=== PATIENT | female | born 1970 | race Caucasian/White ===

== ENCOUNTER 2019-02-05 16:02 | Inpatient (IN) | payer BC ==
--- OUTSIDE RECORDS SUMMARY | 2019-02-05 16:07 | XMS REPORT ---
:1970 [facility] Address [address] [place] [address] Dr. Marina [address] [place] [id number] Care Team Providers Name Role Phone Unavailable Unavailable Unavailable Problems This patient has no known problems. Allergies, Adverse Reactions, Alerts This patient has no known allergies or adverse reactions. Medications This patient has no known medications.
[2019-02-05] MEDS ORDERED: ONDANSETRON 4 MG/2 ML VIAL ONE ×3 (16:15→19:07)
[2019-02-05] MEDS ORDERED: HYDROMORPHONE HCL 1 MG/ML INJ ONE (16:15)
[2019-02-05 16:42] LABS: Absolute Lymphocytes (CBC) 1.9 K/uL (0.7-4.9); Absolute Monocytes 0.7 K/uL (0.1-1.3); Absolute Neutrophil 3.3 K/uL (1.8-8.0); Basophils % 0.7 % (0-1.3); Eosinophils % 1.5 % (0-4.4); Hematocrit 36.7 % (36.0-45.0); MPV 8.4 fL (7.6-11.3); Monocytes % 11.7 % (3.3-12.3); RBC Red Blood Cell Count 4.02 M/uL (3.86-4.86)
[2019-02-05] MEDS ORDERED: FENTANYL CITR 100 MCG/2 ML ONE ×2 (16:47→18:57)
[2019-02-05 16:51] LABS: Potassium 3.1 mmol/L (3.5-5.1)
--- NOTE | 2019-02-05 17:14 | RAD REPORT ---
EXAM DESCRIPTION: RAD - Pelvis - 02/05/2019 4:42 pm CLINICAL HISTORY: Trip and fall, pelvic and left hip pain COMPARISON: None. TECHNIQUE: AP imaging of the pelvis was obtained. FINDINGS: No fracture of the bony pelvis seen. Proximal femur and right hip joint show no acute find ings. There is an oblique fracture through the left femoral neck with superior migration of the main body of the femur. Fracture is subcapital along the lateral margin extending medially and inferiorly to the base of the neck. No intertrochanteric involvement seen. IMPRESSION: Left femoral neck fracture as detailed above and on separate left hip report.
--- NOTE | 2019-02-05 17:36 | ER ---
Nurse's Notes [facility] Name: Sara Chen Age: 48 yrs Sex: Female : 1970 Arrival Date: 02/05/2019 Time: 16:06 Bed 6 Private MD: Diagnosis: Left Femoral Neck Fracture Presentation: 02/05 16:08 Presenting complaint: EMS states: pt tripped over a rug and fell landed on LEFT hip, vs tw2 stable. Presenting complaint:. Transition of care: patient was not received from another setting of care. Onset of symptoms was February 05, 2019. Risk Assessment: Do you want to hurt yourself or someone else? Patient reports no desire to harm self or others. Initial Sepsis Screen: Does the patient meet any 2 criteria? No. Patient's initial sepsis screen is negative. Does the patient have a suspected source of infection? No. Patient's initial sepsis screen is negative. Care prior to arrival: IV initiated. 20 GA, in the right antecubital area. 16:08 Method Of Arrival: EMS: [facility] tw2 16:08 Acuity: NEETU 3 tw2 Triage Assessment: 16:09 General: Appears uncomfortable, slender, well groomed, Behavior is calm, cooperative, tw2 appropriate for age. Pain: Complains of pain in LEFT hip. 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 - Social history:: Smoking status: . - Ebola Screening: : Patient denies travel to an Ebola-affected area in the 21 days before illness onset. Screenin:10 Abuse screen: Denies threats or abuse. Nutritional screening: No deficits noted. tw2 Tuberculosis screening: No symptoms or risk factors identified. Fall Risk None identified. Assessment: 16:06 General: Appears uncomfortable, slender, well groomed, Behavior is cooperative, tw2 appropriate for age. Pain: Complains of pain in LEFT hip. Neuro: Level of Consciousness is awake, alert, obeys commands, Oriented to person, place, time, situation. Cardiovascular: Heart tones S1 S2 Patient's skin is warm and dry. Respiratory: Airway is patent Respiratory effort is even, unlabored, Respiratory pattern is regular, symmetrical, Breath sounds are clear bilaterally. GI: No signs and/or symptoms were reported involving the gastrointestinal system. Abdomen is flat, Bowel sounds present X 4 quads. : No signs and/or symptoms were reported regarding the genitourinary system. EENT: No signs and/or symptoms were reported regarding the EENT system. Derm: No signs and/or symptoms reported regarding the dermatologic system. Musculoskeletal: Range of motion: intact in all extremities. 17:00 Reassessment: Patient appears in no apparent distress at this time. Patient and/or tw2 family updated on plan of care and expected duration. Pain level reassessed. Patient is alert, oriented x 3, equal unlabored respirations, skin warm/dry/pink. 18:00 Reassessment: Patient appears in no apparent distress at this time. Patient and/or tw2 family updated on plan of care and expected duration. Pain level reassessed. Patient is alert, oriented x 3, equal unlabored respirations, skin warm/dry/pink. 18:27 Reassessment: Patient appears in no apparent distress at this time. Patient and/or tw2 family updated on plan of care and expected duration. Pain level reassessed. Patient is alert, oriented x 3, equal unlabored respirations, skin warm/dry/pink. Vital Signs: 16:07 BP 117 / 78; Pulse 87; Resp 17; Temp 98.3; Pulse Ox 100% on R/A; Weight 49.9 kg (R); tw2 Height 5 ft. 7 in. (170.18 cm); Pain 10/10; 17:00 BP 105 / 68; Pulse 69; Resp 17; Pulse Ox 100% on R/A; tw2 17:30 BP 118 / 72; Pulse 76; Resp 12; Pulse Ox 99% on R/A; tw2 18:19 BP 115 / 70; Pulse 71; Resp 19; Pulse Ox 100% on R/A; Pain 9/10; tw2 16:07 Body Mass Index 17.23 (49.90 kg, 170.18 cm) tw2 ED Course: 16:06 Patient arrived in ED. tr5 16:06 Placed in gown. Bed in low position. Pulse ox on. NIBP on. tw2 16:07 Marisel Shi, RN is Primary Nurse. tw2 16:09 Triage completed. tw2 16:09 Arm band placed on. tw2 16:14 Eros Severino PA is PHCP. jr8 16:15 Guy Hopkins MD is Attending Physician. jr8 16:24 CBC with Diff Sent. tw2 16:38 X-ray completed. Portable x-ray completed in exam room. Patient tolerated procedure az well. 16:39 XRAY Pelvis In Process Unspecified. EDMS 16:39 XRAY Hip LEFT 2 view In Process Unspecified. EDMS 16:45 Warm blanket given. Pillow given. jp3 16:57 EKG done, by technical information specialist. reviewed by Eros LOVE. sm3 17:35 Jenaro Perez MD is Hospitalizing Provider. jr8 18:27 No provider procedures requiring assistance completed. Maintain EMS IV. Dressing tw2 intact. Good blood return noted. Site clean \T\ dry. Gauge \T\ site: 20 G RIGHT AC. 18:29 Patient admitted, IV remains in place. tw2 Administered Medications: 16:05 Drug: Dilaudid 1 mg Route: IVP; Site: right antecubital; tw2 16:38 Follow up: Response: No adverse reaction; Pain is unchanged, physician notified tw2 16:05 Drug: Zofran 4 mg Route: IVP; Site: right antecubital; tw2 16:38 Follow up: Response: No adverse reaction tw2 16:38 Drug: fentaNYL (PF) 50 mcg Route: IVP; Site: right antecubital; tw2 17:03 Follow up: Response: No adverse reaction; Pain is decreased tw2 17:03 Drug: fentaNYL (PF) 50 mcg Route: IVP; Site: right antecubital; tw2 17:44 Follow up: Response: No adverse reaction; Pain is decreased tw2 17:43 Drug: Dilaudid 0.5 mg Route: IVP; Site: right antecubital; tw2 18:28 Follow up: Response: No adverse reaction; Pain is decreased tw2 18:23 Drug: Dilaudid 0.5 mg Route: IVP; Site: right antecubital; tw2 18:28 Follow up: Response: No adverse reaction; Pain is decreased tw2 Outcome: 17:36 Decision to Hospitalize by Provider. jr8 18:28 Admitted to OR accompanied by nurse, via stretcher, with chart, Report called to tw2 ANNA Padron/OR 18:28 Condition: stable 18:28 Instructed on the need for admit. 18:29 Patient left the ED. tw2 Signatures: Dispatcher [employer] EDMS Eros Severino PA PA jr8 Marisel Shi RN RN tw2 Jenny Coats 3 Ross Lopez 3 Kenzie Barrios Tommie, RN RN tr5 Corrections: (The following items were deleted from the chart) 16:12 16:08 Acuity: NEETU 4 tw2 tw2 18:28 18:19 BP 115 / 70; Pulse 71bpm; Resp 19bpm; Pulse Ox 100% RA; tw2 tw2
--- NOTE | 2019-02-05 17:36 | EDPHYS ---
Physician Documentation [facility] Name: Sara Chen Age: 48 yrs Sex: Female : 1970 Arrival Date: 02/05/2019 Time: 16:06 Bed 6 Private MD: ED Physician Guy Hopkins HPI: 02/05 16:27 This 48 yrs old Female presents to ER via EMS with complaints of fall injury. jr8 16:27 The patient or guardian reports pain. that occurred outdoors, sustained from a fall, jr8 The patient is not able to ambulate. Patient is not able to bear weight. There is no radiation of the patient's discomfort. The complaints affect the left hip. Onset: The symptoms/episode began/occurred acutely, just prior to arrival, today. Modifying factors: The symptoms are alleviated by nothing, the symptoms are aggravated by any movement. Associated signs and symptoms: Loss of consciousness: the patient experienced no loss of consciousness, Pertinent positives: None. Severity of symptoms: At their worst the symptoms were moderate, in the emergency department the symptoms are unchanged. The patient has not experienced similar symptoms in the past. The patient has not recently seen a physician. Stated that she tripped while in parking lot and tried to brace herself but ended up hitting directly onto her left lateral hip and back of head. NO LOC . 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 - Social history:: Smoking status: . - Ebola Screening: : Patient denies travel to an Ebola-affected area in the 21 days before illness onset. ROS: 16:27 Eyes: Negative for injury, pain, redness, and discharge, ENT: Negative for injury, jr8 pain, and discharge, Neck: Negative for injury, pain, and swelling, Cardiovascular: Negative for chest pain, palpitations, and edema, Respiratory: Negative for shortness of breath, cough, wheezing, and pleuritic chest pain, Abdomen/GI: Negative for abdominal pain, nausea, vomiting, diarrhea, and constipation, Back: Negative for injury and pain, Skin: Negative for injury, rash, and discoloration, Neuro: Negative for headache, weakness, numbness, tingling, and seizure. 16:27 MS/extremity: Positive for decreased range of motion, pain, tenderness, of the left hip. Exam: 16:27 Eyes: Pupils equal round and reactive to light, extra-ocular motions intact. Lids and jr8 lashes normal. Conjunctiva and sclera are non-icteric and not injected. Cornea within normal limits. Periorbital areas with no swelling, redness, or edema. ENT: Nares patent. No nasal discharge, no septal abnormalities noted. Tympanic membranes are normal and external auditory canals are clear. Oropharynx with no redness, swelling, or masses, exudates, or evidence of obstruction, uvula midline. Mucous membranes moist. Neck: Trachea midline, no thyromegaly or masses palpated, and no cervical lymphadenopathy. Supple, full range of motion without nuchal rigidity, or vertebral point tenderness. No Meningismus. Cardiovascular: Regular rate and rhythm with a normal S1 and S2. No gallops, murmurs, or rubs. Normal PMI, no JVD. No pulse deficits. Respiratory: Lungs have equal breath sounds bilaterally, clear to auscultation and percussion. No rales, rhonchi or wheezes noted. No increased work of breathing, no retractions or nasal flaring. Abdomen/GI: Soft, non-tender, with normal bowel sounds. No distension or tympany. No guarding or rebound. No evidence of tenderness throughout. Back: No spinal tenderness. No costovertebral tenderness. Full range of motion. Skin: Warm, dry with normal turgor. Normal color with no rashes, no lesions, and no evidence of cellulitis. Neuro: Awake and alert, GCS 15, oriented to person, place, time, and situation. Cranial nerves II-XII grossly intact. Motor strength 5/5 in all extremities. Sensory grossly intact. Cerebellar exam normal. Normal gait. 16:27 Head/face: Noted is hematoma, that is mild, of the left side of the back of head. 16:27 Musculoskeletal/extremity: Extremities: grossly normal except: noted in the left hip: pain, tenderness, over the greater trochanter region of left hip, ROM: limited active range of motion, limited passive range of motion, limited active range of motion due to pain, limited passive range of motion due to pain, Circulation is intact in all extremities. Pulses: noted to be 2+ in the right radial artery, right posterior tibial artery, right dorsalis pedis artery, left radial artery, left posterior tibial artery and left dorsalis pedis artery, Sensation intact. Vital Signs: 16:07 BP 117 / 78; Pulse 87; Resp 17; Temp 98.3; Pulse Ox 100% on R/A; Weight 49.9 kg (R); tw2 Height 5 ft. 7 in. (170.18 cm); Pain 10/10; 17:00 BP 105 / 68; Pulse 69; Resp 17; Pulse Ox 100% on R/A; tw2 17:30 BP 118 / 72; Pulse 76; Resp 12; Pulse Ox 99% on R/A; tw2 18:19 BP 115 / 70; Pulse 71; Resp 19; Pulse Ox 100% on R/A; Pain 9/10; tw2 16:07 Body Mass Index 17.23 (49.90 kg, 170.18 cm) tw2 MDM: 16:15 Patient medically screened. jr8 16:58 Data reviewed: vital signs, nurses notes, lab test result(s), EKG, radiologic studies, jr8 plain films. Data interpreted: Pulse oximetry: on room air is 100 %. Interpretation: normal. Counseling: I had a detailed discussion with the patient and/or guardian regarding: the historical points, exam findings, and any diagnostic results supporting the discharge/admit diagnosis, lab results, radiology results, the need for further work-up and treatment in the hospital, need for surgery. ED course: After discussing this with patient I called Dr. Bartlett who is coming to see patient and plans on doing surgery immediately. 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 Advised her that I will have Dr. Bartlett talk to her in ED immediately . 17:34 Physician consultation: Jenaro Perez MD was called at 17:34, was contacted at 17:34, jr8 regarding admission, to the operating room, consult, patient's condition, and will see patient. ED course: After talking with Dr. Bartlett. Patient comfortable with staying and having surgery. 02/05 16:15 Order name: CBC with Diff; Complete Time: 17:08 02/05 16:15 Order name: Basic Metabolic Panel; Complete Time: 17:08 02/05 16:15 Order name: XRAY Pelvis; Complete Time: 17:27 02/05 16:15 Order name: XRAY Hip LEFT 2 view; Complete Time: 17:39 8 02/05 16:15 Order name: IV; Complete Time: 16:16 02/05 16:19 Order name: Cardiac monitoring; Complete Time: 16:24 02/05 16:46 Order name: EKG; Complete Time: 16:46 02/05 16:46 Order name: EKG - Nurse/Tech; Complete Time: 16:47 Administered Medications: 16:05 Drug: Dilaudid 1 mg Route: IVP; Site: right antecubital; tw2 16:38 Follow up: Response: No adverse reaction; Pain is unchanged, physician notified tw2 16:05 Drug: Zofran 4 mg Route: IVP; Site: right antecubital; tw2 16:38 Follow up: Response: No adverse reaction tw2 16:38 Drug: fentaNYL (PF) 50 mcg Route: IVP; Site: right antecubital; tw2 17:03 Follow up: Response: No adverse reaction; Pain is decreased tw2 17:03 Drug: fentaNYL (PF) 50 mcg Route: IVP; Site: right antecubital; tw2 17:44 Follow up: Response: No adverse reaction; Pain is decreased tw2 17:43 Drug: Dilaudid 0.5 mg Route: IVP; Site: right antecubital; tw2 18:28 Follow up: Response: No adverse reaction; Pain is decreased tw2 18:23 Drug: Dilaudid 0.5 mg Route: IVP; Site: right antecubital; tw2 18:28 Follow up: Response: No adverse reaction; Pain is decreased tw2 Disposition: 18:30 Co-signature as Attending Physician, Guy Hopkins MD. rn Disposition: 02/05/19 17:36 Hospitalization ordered by Jenaro Perez for Inpatient Admission. Preliminary diagnosis is Left Femoral Neck Fracture . - Bed requested for Telemetry/MedSurg (Inpatient). - Status is Inpatient Admission. tw2 - Condition is Stable. - Problem is new. - Symptoms have improved. UTI on Admission? No Signatures: Dispatcher [employer] EDMS Guy Hopkins MD MD rn Roszak, Josh, PA PA jr8 Marisel Shi RN RN tw2 Corrections: (The following items were deleted from the chart) 18:29 17:36 Hospitalization Ordered by Jenaro Perez MD for Inpatient Admission. Preliminary tw2 diagnosis is Left Femoral Neck Fracture . Bed requested for Telemetry/MedSurg (Inpatient). Status is Inpatient Admission. Condition is Stable. Problem is new. Symptoms have improved. UTI on Admission? No. jr8
--- NOTE | 2019-02-05 17:38 | RAD REPORT ---
EXAM DESCRIPTION: RAD - Hip Left 2 View - 02/05/2019 5:13 pm CLINICAL HISTORY: Fall, hip pain COMPARISON: No remote imaging FINDINGS: AP and cross-table lateral views were obtained. Transverse fracture is present through the femoral neck. Fracture is subcapital in location along the lateral margin extending medially and inferiorly near the base. No intertrochanteric component. Inte rtrochanteric region has migrated superiorly impacting along the superolateral margin of the femoral head. No dislocation of the femoral head. No pathologic component. No significant soft tissue finding. IMPRESSION: Left femoral neck fracture as detailed.
--- NOTE | 2019-02-05 17:46 | EKG ---
Test Date: 2019-02-05 Test Time: 16:57:32 Materials Planning Analyst: ABY MEASUREMENT RESULTS: Intervals: Rate: 72 AK: 150 QRSD: 86 QT: 450 QTc: 492 [place]: P: 66 AK: 150 QRS: 70 T: 58 INTERPRETIVE STATEMENTS: Normal sinus rhythm Nonspecific ST abnormality Prolonged QT Abnormal ECG Compared to ECG 09/07/2015 12:45:51 ST (T wave) deviation now present Prolonged QT interval now present Electronically Signed On 02-05-19 17:46:22 CDT by Mayur Pendleton
[2019-02-05] MEDS ORDERED: HYDROMORPHONE HCL 0.5 MG/0.5 ML INJ ONE ×2 (17:54→18:34)
[2019-02-05] MEDS ORDERED: CEFAZOLIN SODIUM 1 GM/VIAL ONE ×2 (18:55→22:35)
[2019-02-05] MEDS ORDERED: Ringers Lactate 1,000 ML IV ONE (18:55)
[2019-02-05] MEDS ORDERED: NA CIT/CITRIC AC 30 ML ORAL UDC ONE (18:57)
[2019-02-05] MEDS ORDERED: NA CHLORIDE 0.9% 50 ML ONE (18:59)
[2019-02-05] MEDS ORDERED: PROPOFOL 200 MG/20 ML VIAL IV ONE (19:03)
[2019-02-05] MEDS ORDERED: LIDOCAINE 2% MPF 5 ML VIAL ONE (19:04)
--- NOTE | 2019-02-05 19:04 | P.HP ---
Patient History Date of Service: 02/05/19 Reason for admission: Left femoral neck fracture History of Present Illness: This is a 48 yr old female with osteoperosis admitted for left hip pain after a mechanical fall at work. Patient had a fall on her left hip and had progressively worsening pain afterwards, therefore she came to the ED. In the ED, she was in mod-severe pain, though hemodynamically stable. Labs were fairly unremarkable. Hip/pelvic x-ray with left femoral neck fracture. Patient was evaluated by Dr. Bartlett in the ED. Patient went to the OR straight from the ED. At the time of my exam, patient was in significant amount of pain. She remained otherwise hemodynamically stable. She was admitted for further care for the left hip fracture. Allergies SULFA (SULFONAMIDES) Allergy (Uncoded 09/07/15 14:01) Unknown Home medications list reviewed: Yes Review of Systems 10-point ROS is otherwise unremarkable Physical Examination - Vital Signs Temperature: 98.3 F Blood Pressure: 115/70 Pulse: 71 Respirations: 19 - Physical Exam General: Alert, Oriented x3, Moderate distress, Severe distress HEENT: Atraumatic, PERRLA, Mucous membr. moist/pink, EOMI, Sclerae nonicteric Neck: Supple, 2+ carotid pulse no bruit, No LAD, Without JVD or thyroid abnormality Respiratory: Clear to auscultation bilaterally, Normal air movement Cardiovascular: Regular rate/rhythm, Normal S1 S2 Gastrointestinal: Normal bowel sounds, No tenderness Musculoskeletal: No tenderness Integumentary: No rashes Neurological: Normal gait, Normal speech, Normal strength at 5/5 x4 extr, Normal tone, Normal affect Lymphatics: No axilla or inguinal lymphadenopathy - Studies Laboratory Data (last 24 hrs) 02/05/19 16:21: Sodium 143, Potassium 3.1 L, BUN 8, Creatinine 0.86, Glucose 108 H 02/05/19 16:21: WBC 6.0, Hgb 12.3, Hct 36.7, Plt Count 270 Assessment and Plan - Problems (Diagnosis) (1) Femur fracture, left Current Visit: Yes Status: Acute Plan: Patient awaiting surgery at this time. keep NPO at this time Pain management Dr. Bartlett on board, Recommendations appreciated. Patient will need SW for discharge planning down the line. Qualifiers: Encounter type: initial encounter Femur location: neck, unspecified portion Fracture type: closed Qualified Code(s): S72.002A - Fracture of unspecified part of neck of left femur, initial encounter for closed fracture (2) Fall Current Visit: Yes Status: Acute Plan: Mechanical fall Qualifiers: Encounter type: initial encounter Qualified Code(s): W19.XXXA - Unspecified fall, initial encounter (3) Osteoporosis Current Visit: Yes Status: Acute Qualifiers: Osteoporosis type: unspecified Presence of current pathological fracture: unspecified Qualified Code(s): M81.0 - Age-related osteoporosis without current pathological fracture - Plan Hold AC at this time for pending surgery. Will start anticoagulation 24 hrs post surgery Disposition: Pending surgical intervention at this time. - Advance Directives Does patient have a Living Will: No Does patient have a Durable POA for Healthcare: No
[2019-02-05] MEDS ORDERED: ROCURONIUM 50 MG/5 ML VIAL IV ONE (19:05)
[2019-02-05] MEDS ORDERED: SUCCINYLCHOLINE 20 MG/ML (10 ML) IV ONE (19:12)
[2019-02-05] MEDS ORDERED: MIDAZOLAM HCL 2 MG/2 ML INJ ONE (19:48)
[2019-02-05] MEDS ORDERED: TRANEXAMIC ACID 1,000 MG in NA CHLORIDE 0.9% 50 ML IV ONE ×4 (20:00)
[2019-02-05] MEDS ORDERED: KETOROLAC 30 MG/ML INJ ONE (20:03)
[2019-02-05] MEDS ORDERED: DEXAMETHASONE 10 MG/ML VIAL ONE (20:03)
[2019-02-05] MEDS ORDERED: EPHEDRINE SULF 50 MG/ML VIAL ONE (20:22)
--- NOTE | 2019-02-05 20:24 | P.BOP ---
Preoperative diagnosis: left femoral neck fracture Postoperative diagnosis: same Primary procedure: CR with screw fixation femoral neck Estimated blood loss: <10 ccs Anesthesia: General Complications: None Transferred to: Recovery Room Condition: Good
[2019-02-05] MEDS ORDERED: GLYCOPYRROLATE 0.2 MG/ML SYR ONE (20:28)
[2019-02-05] MEDS ORDERED: NEOSTIGMINE 1 MG/ML -10 ML VIAL ONE ×2 (20:33→20:46)
[2019-02-05] MEDS: FENTANYL CITR 100 MCG/2 ML ONE ×4 (20:40→20:55)
[2019-02-05] MEDS: HYDROMORPHONE HCL 1 MG/ML INJ ONE ×2 (21:05→21:15)
[2019-02-05] MEDS ORDERED: ONDANSETRON HCL 40 MG/20 ML VIAL ONE (21:22)
[2019-02-05 22:20] VITALS: BMI 21.7
[2019-02-05] MEDS: KCL 20 MEQ/100 mL IVPB 20 MEQ/100 ML BAG IV SCH (22:41)
[2019-02-05] MEDS ORDERED: NA CHLORIDE 0.9% 1,000 ML ONE (22:52)
[2019-02-05] MEDS: MORPHINE 4 MG/ML SYR IV PRN (23:12)
[2019-02-06] MEDS: KCL 20 MEQ/100 mL IVPB 20 MEQ/100 ML BAG IV SCH (00:45)
[2019-02-06] MEDS ORDERED: CEFAZOLIN/NS 1gm 1 GM/50 ML BAG IVPB SCH (02:00)
--- NOTE | 2019-02-06 02:39 | OP ---
Date of Procedure: 02/05/2019 Surgeon: Adilson Bartlett MD Preoperative Diagnosis: Left displaced femoral neck fracture. Postoperative Diagnosis: Left displaced femoral neck fracture. Procedure Performed: Closed reduction with screw fixation of femoral neck fracture. Estimated Blood Loss: Less than 10 cc. Complications: There were no complications. Specimen: No pathology specimens sent. Indication For Operation: Ms. Chen is a 48-year-old female who unfortunately suffers from osteop orosis. She apparently fell and injured her left lower extremity. She was seen and examined in the emergency department where she was ruled out for other injuries; however, there was an obvious fractu re of the femoral neck with displacement. All risks, benefits, and alternatives to treatment of this were discussed with the patient and urgent fixation is selected and patient agrees to proceed. Description Of Procedure: The patient was taken to the operating room and placed in supine position. General anesthesia was easily obtained by staff. Following this, she was then transferred to the f racture table where her well leg was appropriately positioned. Great care being taken to observe the bony prominences. Following this, the C-arm was then brought in and a standard reduction maneuver o ut of the fracture table was then performed with slight abduction flexion followed by adduction and i nternal rotation. The leg was held in this position and C-arm was taken both AP and lateral, which d emonstrate an anatomic reduction which actually was quite surprising given the amount of displacement . As it was held in this position, it was then affixed to the traction footplate. After it was affi xed to traction footplate, again AP and laterals were done. There was a very slight amount of varus and a small amount of traction was applied, but otherwise looked good on both AP and lateral views. The hip was then prepped and draped in usual sterile fashion and, following this, it is again observe d as reduction is an extremely important part of this case and at no point was there any hesitation t o open it, however I did not feel based on the quality of the views that we could improve this even w ith open reduction. Therefore, decision was made to proceed. First pin placed is the anterior super ior pin. This was followed by the inferior center pin to be followed by the posterior superior pin. After this, the small incisions were made, which allowed for placement of the measuring guide. The measuring guide has been placed and these were appropriately measured. Care was taken to observe the pins on biplanar C-arm radiography to avoid any extrusion. They were a little bit more clustered in the head than I would like. However, given the patient's small femoral neck and history of osteopor osis, the decision was made that these all appear to be well positioned and should not be repositione d. The first screw was placed to the anterior superior pin to avoid any compression of some posterio r comminution which is obviously present on the lateral. This was then placed partially-threaded scr ew to allow for some anterior superior compression. This was followed by the same technique used for the inferior pin and screw, lastly followed by the posterior superior screw which was placed down to a depth with a fairly good bite. However, no attempt was made to use this as a compression apparatu s. Following this, it was again observed with pins in place and all screws appeared to be positioned where desired. The pins were then removed. The wounds were gently irrigated and skin was closed us ing derek. The patient was then placed in Aquacel dressing, awakened, and taken to recovery room i n good condition. There were no complications. /PREETHI Voice ID: [id number] Report ID: [id number]
[2019-02-06] MEDS: MORPHINE 4 MG/ML SYR IV PRN ×3 (02:43→15:34)
[2019-02-06 03:11] LABS: Urine Appearance CLEAR; Urine Bilirubin NEGATIVE (NEG); Urine Blood 1+ (NEG); Urine Color YELLOW; Urine Glucose NEGATIVE (NEG); Urine Protein NEGATIVE (NEG); Urine Urobilinogen 0.2 mg/dL (0.2-1.0)
[2019-02-06 03:16] LABS: Urine Microscopic Reflex ORDER UMIC
[2019-02-06 03:22] LABS: Urine Bacteria <20 /HPF (<20); Urine Culture Reflex Order NOT NEEDED
--- NOTE | 2019-02-06 04:33 | CON ---
Date of Consultation: 02/05/2019 History Of Present Illness: This is my first time seeing this patient and to my knowledge, she is a 48-year-old female, who was walking and unfortunately fell injuring her left lower extremity. She wa s taken to the emergency department, where she was ruled out for other injuries, however, was found o n x-ray to have a femoral neck fracture. I come to see her. Past Medical History: Consistent with hysterectomy as well as a history of osteoporosis. Physical Examination: All of her long bones and joints are palpated without pain or crepitation with exception of left hip, which was painful at rest and also with any palpation or manipulation. Imaging: Review of x-rays reveal a displaced Garden 4 femoral neck fracture. No underlying osteoart hritis is noted. Assessment: This is a 48-year-old female with a displaced femoral neck fracture, otherwise, healthy. Plan: At this time, recommendation is for relatively urgent operative intervention to include probab le open reduction with internal fixation. The risks, benefits, and alternatives of this have been di scussed with the patient. However, we will plan at this time for closed reduction, which will probab ly be inadequate with probable open reduction with internal fixation. She says she understands every thing as presented and she knows that the risks include, avascular necrosis, failure to heal, shorten ing of the limb, need for revision including total hip arthroplasty, as well as other risks outlined in the consent form and she agrees to proceed . KAREN Voice ID: [id number] Report ID: [id number]
[2019-02-06 05:52] LABS: Absolute Lymphocytes (CBC) 0.4 K/uL (0.7-4.9); Absolute Monocytes 0.3 K/uL (0.1-1.3); Absolute Neutrophil 8.7 K/uL (1.8-8.0); Basophils % 0.2 % (0-1.3); Hematocrit 37.3 % (36.0-45.0); Lymphocytes % 4.5 % (15.3-44.8); MPV 8.3 fL (7.6-11.3); Monocytes % 2.7 % (3.3-12.3); RBC Red Blood Cell Count 4.07 M/uL (3.86-4.86)
[2019-02-06 06:04] LABS: Magnesium 2.5 mg/dL (1.8-2.4); Phosphorus 3.3 mg/dL (2.5-4.9)
[2019-02-06 07:48] LABS: Blood Morphology Comment NOT SEEN (NOT SEEN); Platelet Estimate ADEQ; Urine White Blood Cell Casts OK
--- NOTE | 2019-02-06 07:50 | RAD REPORT ---
EXAM DESCRIPTION: RAD - Hip In Or - 02/05/2019 8:45 pm CLINICAL HISTORY: Left femoral neck fracture surgical repair COMPARISON: February 05 FINDINGS: Fluoro time was 2.6 minutes. There were 13 portable C-arm views obtained during fluoroscopic assisted fracture fixation. Images sh ow stepwise placement of fixation hardware. No suspicious or unexpected finding. IMPRESSION: Left femur fracture repair as detailed.
--- NOTE | 2019-02-06 09:18 | P.PN ---
Subjective Date of Service: 02/06/19 Chief Complaint: Left femoral neck fracture Subjective: Improving Patient seen and examined at bedside. Son at bedside. Chart reviewed and case discussed with nursing staff. Pain is improved, controlled with medications. No other complaints this morning. Review of Systems 10-point ROS is otherwise unremarkable Physical Examination - Vital Signs Temperature: 97.9 F Blood Pressure: 95/60 Pulse: 74 Respirations: 18 Pulse Ox (%): 96 - Physical Exam General: Alert, In no apparent distress, Oriented x3 HEENT: Atraumatic, PERRLA, EOMI Neck: Supple, JVD not distended Respiratory: Clear to auscultation bilaterally, Normal air movement Cardiovascular: Regular rate/rhythm, Normal S1 S2 Gastrointestinal: Normal bowel sounds, No tenderness Musculoskeletal: Tenderness (Inscision site clean, dry and intact) Integumentary: No rashes Neurological: Normal speech, Normal tone, Normal affect Lymphatics: No axilla or inguinal lymphadenopathy - Studies Laboratory Data (last 24 hrs) 02/05/19 16:21: Sodium 143, Potassium 3.1 L, BUN 8, Creatinine 0.86, Glucose 108 H 02/05/19 16:21: WBC 6.0, Hgb 12.3, Hct 36.7, Plt Count 270 Assessment And Plan - Current Problems (Diagnosis) (1) Femur fracture, left Current Visit: Yes Status: Acute Plan: Patient s/p surgery at this time. Continue pain management Dr. Bartlett on board, Recommendations appreciated. CHRISTY on board for discharge planning Qualifiers: Encounter type: initial encounter Femur location: neck, unspecified portion Fracture type: closed Qualified Code(s): S72.002A - Fracture of unspecified part of neck of left femur, initial encounter for closed fracture (2) Fall Current Visit: Yes Status: Acute Plan: Mechanical fall Qualifiers: Encounter type: initial encounter Qualified Code(s): W19.XXXA - Unspecified fall, initial encounter (3) Osteoporosis Current Visit: Yes Status: Acute Qualifiers: Osteoporosis type: unspecified Presence of current pathological fracture: unspecified Qualified Code(s): M81.0 - Age-related osteoporosis without current pathological fracture - Plan Will start anticoagulation 24 hrs post surgery Disposition: Pending symptom improvement, PT and disposition.
[2019-02-06] MEDS: CEFAZOLIN/SWI 1gm 1 GM/10 ML SYR IV SCH ×2 (09:22→17:19)
[2019-02-06] MEDS: TRAMADOL HCL 50 MG TAB PO PRN ×2 (12:05→21:04)
[2019-02-06] MEDS: ENOXAPARIN 40 MG/0.4 ML SQ SCH (17:18)
[2019-02-06] MEDS ORDERED: FENTANYL CITR 100 MCG/2 ML IV ONE (22:51)
[2019-02-07] MEDS: TRAMADOL HCL 50 MG TAB PO PRN ×5 (03:34→23:11)
[2019-02-07 06:31] LABS: BUN Blood Urea Nitrogen 14 mg/dL (7-18); Bicarbonate 26 mmol/L (21-32); Glucose Level 100 mg/dL (74-106); Potassium 3.8 mmol/L (3.5-5.1); Sodium Level 141 mmol/L (136-145)
[2019-02-07 06:33] LABS: Absolute Lymphocytes (CBC) 1.4 K/uL (0.7-4.9); Absolute Monocytes 0.8 K/uL (0.1-1.3); Absolute Neutrophil 5.2 K/uL (1.8-8.0); Basophils % 0.3 % (0-1.3); Eosinophils % 1.1 % (0-4.4); Hematocrit 34.1 % (36.0-45.0); Lymphocytes % 18.9 % (15.3-44.8); MPV 8.7 fL (7.6-11.3); Monocytes % 10.8 % (3.3-12.3); RBC Red Blood Cell Count 3.72 M/uL (3.86-4.86)
[2019-02-07] MEDS ORDERED: POTASSIUM CL SA 10 MEQ TAB PO ONE (09:00)
--- NOTE | 2019-02-07 10:12 | P.PN ---
Subjective Date of Service: 02/07/19 Chief Complaint: Left femoral neck fracture Subjective: Improving, Working w/ PT Patient seen and examined at bedside. Family at bedside. Chart reviewed and case discussed with nursing staff. Pain is improved, controlled with medications. No other complaints this morning. Working well with physical therapy Review of Systems 10-point ROS is otherwise unremarkable Physical Examination - Vital Signs Temperature: 98.2 F Blood Pressure: 91/51 Pulse: 72 Respirations: 14 Pulse Ox (%): 97 - Physical Exam General: Alert, In no apparent distress, Oriented x3 HEENT: Atraumatic, PERRLA, EOMI Neck: Supple, JVD not distended Respiratory: Clear to auscultation bilaterally, Normal air movement Cardiovascular: Regular rate/rhythm, Normal S1 S2 Gastrointestinal: Normal bowel sounds, No tenderness Musculoskeletal: No tenderness Integumentary: No rashes Neurological: Normal speech, Normal tone, Normal affect Lymphatics: No axilla or inguinal lymphadenopathy Assessment And Plan - Current Problems (Diagnosis) (1) Femur fracture, left Current Visit: Yes Status: Acute Plan: Patient s/p surgery at this time. POD#[address] Bartlett on board, Recommendations appreciated. CHRISTY on board for discharge planning, pending inpatient rehab evaluation Qualifiers: Encounter type: initial encounter Femur location: neck, unspecified portion Fracture type: closed Qualified Code(s): S72.002A - Fracture of unspecified part of neck of left femur, initial encounter for closed fracture (2) Fall Current Visit: Yes Status: Acute Plan: Mechanical fall Continue physical therapy Qualifiers: Encounter type: initial encounter Qualified Code(s): W19.XXXA - Unspecified fall, initial encounter (3) Osteoporosis Current Visit: Yes Status: Acute Qualifiers: Osteoporosis type: unspecified Presence of current pathological fracture: unspecified Qualified Code(s): M81.0 - Age-related osteoporosis without current pathological fracture - Plan Continue Lovenox for anticoagulation Disposition: Pending inpatient rehab evaluation.
--- NOTE | 2019-02-07 12:28 | DS ---
The patient is seen today 1 day status post left hip screw fixation of displaced femoral neck fractur e. She is resting fairly comfortable at the bedside. Her dressing is clean, dry, and intact. There was found to be no sign of abnormal appearance. She has been afebrile. Hemoglobin has essentially not been changed 12.3 preoperatively and 12.6 today. She has had potassium replacement. Does have l ow magnesium as well, but these are followed by the hospitalist. I will speak with him about anticoa gulation, which we recommend for 3 weeks. She will be touchdown weightbearing. I spoke with the willa sical therapist as OB work with her later today. Discharge planning, most likely she is going to go to rehab; however, we will see how she does. She will return to see me in my office in 2 weeks or sooner with problems. All of her questions as well as those of her family otherwise answered. /PREETHI Voice ID: [id number] Report ID: [id number]
[2019-02-07] MEDS: ENOXAPARIN 40 MG/0.4 ML SQ SCH (17:00)
--- NOTE | 2019-02-07 20:05 | PN ---
Date of Progress Note: 02/07/2019 The patient is seen today. Her dressing is clean, dry, and intact. There is a very small amount of blood, which can be seen through the Aquacel, but this is obviously normal. She does have some tende rness with palpation in this area, but there is no erythema or sign of infection. Her hemoglobin is very stable. She has been afebrile. She has been walking with crutches and physical therapy, fairly good distance and then complained of lightheadedness. As far as her discharge, I would change the d ressing if she is leaving the hospital to a fresh Aquacel just prior to discharge. If she is going h ome, asking for an additional 1 in case of problems with one. She was given. Otherwise, she should be on anticoagulation appropriate for hip fracture for 3 weeks, then transition to aspirin. [place] removed at postop day 10-14. We could see her in office for that or she can have that done at home. Otherwise, she will continue touchdown weightbearing. All of her questions were otherwise answered. KAREN Voice ID: [id number] Report ID: [id number]
[2019-02-07 20:22] VITALS: O2SAT 97
[2019-02-07] MEDS: DOCUSATE NA 100 MG CAP PO SCH (22:27)
[2019-02-08] MEDS: TRAMADOL HCL 50 MG TAB PO PRN ×2 (05:25→11:33)
[2019-02-08 05:54] LABS: Absolute Lymphocytes (CBC) 1.5 K/uL (0.7-4.9); Basophils % 0.6 % (0-1.3); Eosinophils % 1.8 % (0-4.4); Hematocrit 33.7 % (36.0-45.0); Lymphocytes % 19.7 % (15.3-44.8); MPV 8.3 fL (7.6-11.3); Monocytes % 12.8 % (3.3-12.3)
[2019-02-08 06:10] LABS: BUN Blood Urea Nitrogen 9 mg/dL (7-18); Bicarbonate 30 mmol/L (21-32); Glucose Level 100 mg/dL (74-106); Potassium 4.5 mmol/L (3.5-5.1); Sodium Level 141 mmol/L (136-145)
[2019-02-08] MEDS: DOCUSATE NA 100 MG CAP PO SCH (08:22)
[2019-02-08 14:02] VITALS: BP 103/61; TEMP 98.2
--- NOTE | 2019-02-08 16:17 | P.DS ---
Admission Date: 02/05/19 Discharge Date: 02/08/19 Disposition: TRANSFER TO INPATIENT REHAB Discharge Condition: GOOD Reason for Admission: Left femoral neck fracture Consultations: Dr. Alanis, Orthopedic surgery Procedures: Hip surgery - Problems (1) Femur fracture, left Current Visit: Yes Status: Acute Qualifiers: Encounter type: initial encounter Femur location: neck, unspecified portion Fracture type: closed Qualified Code(s): S72.002A - Fracture of unspecified part of neck of left femur, initial encounter for closed fracture (2) Fall Current Visit: Yes Status: Acute Qualifiers: Encounter type: initial encounter Qualified Code(s): W19.XXXA - Unspecified fall, initial encounter (3) Osteoporosis Current Visit: Yes Status: Acute Qualifiers: Osteoporosis type: unspecified Presence of current pathological fracture: unspecified Qualified Code(s): M81.0 - Age-related osteoporosis without current pathological fracture Brief History of Present Illness: This is a 48 yr old female with osteoperosis admitted for left hip pain after a mechanical fall at work. Patient had a fall on her left hip and had progressively worsening pain afterwards, therefore she came to the ED. In the ED, she was in mod-severe pain, though hemodynamically stable. Labs were fairly unremarkable. Hip/pelvic x-ray with left femoral neck fracture. Patient was evaluated by Dr. Bartlett in the ED. Patient went to the OR straight from the ED. At the time of my exam, patient was in significant amount of pain. She remained otherwise hemodynamically stable. She was admitted for further care for the left hip fracture. Hospital Course: Patient was admitted for left femur fracture after mechanical fall. She underwent surgery with Dr. Bartlett. She tolerated the surgery well. Her pain was controlled with pain medications. She started working with physical therapy, she did well with physical therapy. She was started on Lovenox 24 hr after surgery for anticoagulation. She will continue anticoagulation for the next with Lovenox. She was then transferred up to a rehab for further rehabilitation. She otherwise did well throughout the stay. Her diagnoses/treatment plan were explained to patient. She verbalized understanding. All questions were answered. She was discharged to inpatient rehab in a safe and stable manner. Vital Signs/Physical Exam: Temp Pulse Resp BP Pulse Ox 98.2 F 84 16 103/61 98 02/08/19 12:00 02/08/19 12:00 02/08/19 12:00 02/08/19 12:00 02/08/19 12:00 General: Alert, In no apparent distress, Oriented x3 HEENT: Atraumatic, PERRLA, EOMI Neck: Supple, JVD not distended Respiratory: Clear to auscultation bilaterally, Normal air movement Cardiovascular: Regular rate/rhythm, Normal S1 S2 Gastrointestinal: Normal bowel sounds, No tenderness Musculoskeletal: No tenderness Integumentary: No rashes Neurological: Normal speech, Normal tone, Normal affect Lymphatics: No axilla or inguinal lymphadenopathy Laboratory Data at Discharge: WBC 7.7 K/uL (4.3-10.9) 02/08/19 05:13 Hgb 11.5 g/dL (12.0-15.0) L 02/08/19 05:13 Hct 33.7 % (36.0-45.0) L 02/08/19 05:13 Plt Count 240 K/uL (152-406) 02/08/19 05:13 Sodium 141 mmol/L (136-145) 02/08/19 05:13 Potassium 4.5 mmol/L (3.5-5.1) 02/08/19 05:13 BUN 9 mg/dL (7-18) 02/08/19 05:13 Creatinine 0.66 mg/dL (0.55-1.3) 02/08/19 05:13 Glucose 100 mg/dL (74-106) 02/08/19 05:13 Phosphorus 3.3 mg/dL (2.5-4.9) 02/06/19 05:20 Magnesium 2.5 mg/dL (1.8-2.4) H 02/06/19 05:20 Home Medications: Alendronate Sodium 1 tab PO SEECOM 02/05/19 Enoxaparin Sodium [Lovenox 40 MG INJ*] 40 mg SQ DAILY 5 PM syr 02/08/19 traMADol HCL [Ultram*] 50 mg PO Q6H PRN tab 02/08/19 Patient Discharge Instructions: Please follow up with Dr. Bartlett in 2 weeks Diet: Regular Followup: Adilson Bartlett MD [ACTIVE - CAN ADMIT] - (2 weeks) Siva Cornejo MD [Primary Care Provider] - Time spent managing pt's care (in minutes): 45
[2019-02-12] MEDS ORDERED: ALENDRONATE 70 MG TAB PO SCH (06:30)
== END 2019-02-08 15:53 | DRG 482 ==
LOC: ER 16:02 → ERHOLD 17:41 → 2ND 21:01
PROVIDERS: ADMIT Family Medicine; ATTEND Family Medicine
PROC: 0QS734Z Reposition Left Upper Femur with Internal Fixation Device, Percutaneous Approach (ICD-10-PCS; principal; 2019-02-05 18:37)
DX: S72.002A Fracture of unspecified part of neck of left femur, initial encounter for closed fracture (principal); W01.10XA Fall on same level from slipping, tripping and stumbling with subsequent striking against unspecified object, initial encounter; Y93.9 Activity, unspecified; Y92.481 Parking lot as the place of occurrence of the external cause; Y99.0 Civilian activity done for income or pay; M81.0 Age-related osteoporosis without current pathological fracture; Z88.2 Allergy status to sulfonamides
CPT/HCPCS: 36415; 72170; 73530; 80048; 81003; 81015; 83735; 84100; 85025; 93005; 94760; 96365; 96367; 96374; 96375; 97110; 97116; 97163; 97530; 99285; J0330; J0690; J1100; J1170; J1650; J2250; J2405; J2704; J2710; J3010; J7030

== ENCOUNTER 2019-02-08 16:01 | Inpatient (IN) | payer BC ==
--- NOTE | 2019-02-08 09:20 | R.PREADM ---
SCREENING DATE AND TIME 02/07/2019 18:18 (CDT) ANTICIPATED REHAB ADMISSION DATE 02/09/2019 REFERRING FACILITY [facility] REFERRAL DATE AND TIME 02/07/2019 18:18 (CDT) REFERRAL ROOM# 206 ACUTE ADMIT DATE 02/05/2019 Previous Rehabilitation(s): No. ACUTE RIP SAW OPERATOR/DC RECORD SYSTEMS ANALYST Shelby Morales REFERRING PHYSICIAN Jenaro Perez REHAB FACILITY [facility] CLINICAL LIAISON Joan Santos PHYSICIAN REVIEWER Dr. Ric Wild M.D. MR# [id number] NAME SARA CHEN ADDRESS [address] [facility] [place] PHONE [facility] [address] DATE OF 1970 AGE 48 SSN# [id number] GENDER female MARITAL STATUS RACE white ADMIT FROM 02 - [facility] PRE-HOSPITAL LIVING SETTING 01 - Home (private home/apt. board/care, assisted living, alf, transitional living) HOME TYPE AND DETAILS Type of home: single family house # of levels in the residence: 1 # of steps to enter the residence: 1 # of steps within the residence: 0 PRE-HOSPITAL LIVING WITH Family/Relatives FAMILY SUPPORT Yes PRIMARY FAMILY CONTACT NAME Dariel Chen PRIMARY FAMILY CONTACT PHONE PRIMARY FAMILY CONTACT RELATIONSHIP Son PHONE PRIMARY FAMILY CONTACT ON ADM.? no IS PRIMARY FAMILY CONTACT AUTH. REP.? no 1ST EMERGENCY CONTACT Dariel Chen 1ST CONTACT PHONE 1ST CONTACT RELATIONSHIP Son PHONE 1ST CONTACT ON ADM. no IS 1ST CONTACT AUTH. REP.? no PHONE 2ND CONTACT ON ADM.? 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 No ANOTHER CONSTITUTION PARTY RESPONSIBLE? No PRIMARY REHAB/ACUTE DIAGNOSIS: Left Femur Fracture ONSET DATE 02/05/2019 REHAB IMPAIRMENT CATEGORY (JOSÉ LUIS): 07 Fracture of LE (FracLE) MEETS 60% rule AFFECTED EXTREMITIES: LLE PRIMARY DIAGNOSIS-RELATED SURGERIES: Closed Reduction with screw fixation of femoral nect fracture - performed by Adilson Bartlett on [facility] REHAB/ACUTE DIAGNOSES: - N/A Osteoporosis INTERVENTIONS: - Osteoporosis Medications Safety RISK FOR COMPLICATIONS: - Osteoporosis Falls Fractures (pathological) SUMMARY OF ACUTE HOSPITALIZATION: Pt. is a 48 yo Right-handed white female. On 02/05/2019 she was admitted to [facility] with diagnosis Left Femur Fracture . Her impairment category is Orthopaedic Disorders 08 - Unilateral Hip Fracture (08.11). Pre-morbidly, Pt. was independent/mod-I in Self-Care, Sphincter Control, Transfers Control, Locomotio n, Communication, and Social Cognition; and she had good Sphincter Control. Currently, she has deficits of Transfers Control, Locomotion, Endurance, Balance, Safety Awareness, a nd Self-Care. Pt. is now referred to [facility] for acute in-patient rehabilitation in order to maximize patient's functional independence in activities of daily living, strength, ROM, and mobi lity. Patient has realistic goal of being discharged at assistance level 6-Yulisa to reside at Home with Fam cara/Relatives. Sara Chen is a 48 year old female that lives in a single rich house with her 2 sons, has 1 step to front and no steps from the back/garage. Patient was independent without an assistive device. On 02/05/2019, she tripped outside her office and had a mechanical fall and was admitted to [facility] and treated. She is now medically stable but in need of 24-hour nursing, doctor supervision and oversite while receiving active and ongoing is reasonably expected to participate in 3hours of therapy a day/15 hours per week and receive care with an intensive interdisciplinary approach. PAST MEDICAL HISTORY Osteoporosis PAST SURGICAL HISTORY: Gallbladder surgery Total Hysterectomy Lap surgery Right leg surgery MEDICATION ALLERGIES: Sulfa ENVIRONMENTAL ALLERGIES: None Known - Substance Allergies None Known - Other Allergies None Known CODE STATUS: Full code WEIGHT/HEIGHT/BMI: WEIGHT 147 lbs HEIGHT 5' 9" BMI 21.7 DIET: - Diet Type Regular - Diet - Solid Texture Regular - Diet - Liquid Texture Regular - Tube Feed N/A SKIN DIAGRAM: Incision on Left upper leg; extent - small; stage - NS(Not Stageable). Treatment - Per Physician's Or ders. REVIEW OF SYSTEMS: - Gen Alert and awake Lying in bed No apparent distress Oriented to: person, time, and place - Vital Signs Temperature: 98.2 F SBP/DBP: 101/60 Pulse: 76 Resp: 14 Vital signs stable, afebrile - CVS RRR VITAL SIGNS Temperature: 98.2 F SBP/DBP: 101/60 Pulse: 76 Resp: 14 Vital signs stable, afebrile CURRENT SPHINCTER CONTROL: Pre-hospital bladder status: continent # of bladder accidents in the last 7 days prior to screenin Pre-hospital bowel status: continent # of bowel accidents in the last 7 days prior to screenin Last Bowel Movement Date: DETAILED CURRENT FUNCTIONAL STATUS: - Bladder accident frequency: Ind - No accidents in the past 7 days - Bowel accident frequency: Ind - No accidents in the past 7 days - Walking score based on distance walked: 2(7249ft) - Wheelchair score based on distance traveled: 0(N/A) FUNCTIONAL STATUS: - Self-Care A. Eating Ind Ind B. Grooming Ind Ind C. Bathing Ind sup D. Dressing - Upper Ind Ind E. Dressing - Lower Ind Christophe F. Toileting Ind Christophe - Sphincter Control G: Bladder control Ind Ind H: Bowel control Ind Ind - Transfers Control I. Bed/Chair/Wheelchair Ind Christophe J. Toilet Ind Christophe K. Tub/Shower Ind ADNO - Locomotion L. Walk/Wheelchair (C) Ind CGA L. Walk/Wheelchair (W) Ind CGA M. Stairs Ind ADNO - Communication N. Comprehension (B) Ind Ind O. Expression (B) Ind Ind - Social Cognition P. Social Interaction Ind Ind Q. Problem Solving Ind Ind R. Memory Ind Ind - Endurance Fair - Balance Fair - Safety Awareness Fair CURRENT FUNC. DEFICITS: Transfers Control, Locomotion, Endurance, Balance, Safety Awareness, and Self-Care THERAPY NOTES FROM ACUTE CARE: Attached. SPECIAL NEEDS: - Safety Concerns Skin breakdown precautions needed due to skin breakdown risk PRECAUTIONS: - Posterior Hip Precaution No adduction across midline No external rotation No hip flexion >90 degrees No internal rotation No wheel chair propulsion - Weight Bearing Precaution TTWB left LE PATIENT NEEDS ACTIVE AND ONGOING THERAPEUTIC INTERVENTION OF MULTIPLE THERAPY DISCIPLINES, INCLUDING: - Occupational Therapy Evaluate and Treat. - Physical Therapy Evaluate and Treat. PATIENT NEEDS CLOSE MEDICAL SUPERVISION BY A REHABILITATION PHYSICIAN FOR: Bowel and Bladder Management Coordination of Treatment Team Medical and Co-Morbidity Management Wound Care Pain Management DVT Management PATIENT REQUIRES 24X7 REHAB NURSING FOR MEDICAL AND FUNCTIONAL MGT. OF THE FOLLOWING DEFICITS: ADL's Ambulation Bowel and Bladder Management Communication Disease Management Medication Management Patient/Family Education Providing Safe Environment Skin Integrity Transfers Pain Management DVT Management PATIENT REQUIRES INTENSIVE, COORDINATED INTERDISCIPLINARY APPROACH TO REHAB: Arranging Home Equipment/Services Discharge Planning Family Intervention/Training Pipe Inspector/Case Management PATIENT REHAB POTENTIAL: Expected level of measurable improvement will be of a practical value to patient's functional capacit y or adaptations to impairments Has a viable Discharge Plan Medically appropriate; condition is sufficiently stable to participate in intensive rehab program Patient is able and expected to receive 3 hours of individualized therapy daily on at least 5 of ever y 7 days Patient's prognosis for significant practical improvement within a reasonable period of time appears Good DISCHARGE PLAN: - Estimated Length of Stay (days) 14. - Consensus on plan Discharge plan has been discussed with primary caregiver. Patient/Family is in agreement with the neftali n. Primary caregiver is in agreement with the plan. - Patient/Family Goals Return home with assistance. - Planned Living Setting Upon Discharge Home, to live with Family/Relatives. Transitional Living. RECOMMENDED CARE LEVEL: IRF RECOMMENDATION DETAILS: Recommended Admission to Comprehensive Rehabilitation Program to Increase Functional [place] SCREENER'S COMPLETENESS CONFIRMATION: - Screening Confirmation The patient data collection on this preadmission screening form is finished PHYSICIANS REVIEW AND ADMISSION DETERMINATION Admit - Based on my review of the Pre-Admission Screening results, in my medical judgment and experie nce, I concur with the findings and recommend admission to [facility], as this patient requires an IRF level of care. SIGNATURE PANEL: Clinical Liaison - [electronically] signed by Joan Santos on 02/07/2019 at 18:41 (CDT) Physician Reviewer - [electronically] signed by Dr. Ric Wild M.D. on 02/08/2019 at 09:21 (CDT )
--- OUTSIDE RECORDS SUMMARY | 2019-02-08 16:03 | XMS REPORT ---
:1970 [facility] Address [address] [place] [address] Dr. Marina [address] [place] [id number] Care Team Providers Name Role Phone Unavailable Unavailable Unavailable Problems This patient has no known problems. Allergies, Adverse Reactions, Alerts This patient has no known allergies or adverse reactions. Medications This patient has no known medications.
[2019-02-08] MEDS ORDERED: TRAMADOL HCL 50 MG TAB PO PRN (17:11)
[2019-02-08] MEDS: ENOXAPARIN 40 MG/0.4 ML SQ SCH (17:52)
[2019-02-08] MEDS ORDERED: LACTULOSE 20 GM/30 ML UCUP PO PRN (22:05)
[2019-02-08] MEDS ORDERED: BISACODYL 10 MG RECTAL SUPP PR PRN (22:06)
[2019-02-08] MEDS ORDERED: DOCUSATE NA/SENNA CONC 1 TAB PO PRN (22:07)
[2019-02-08] MEDS: GABAPENTIN 300 MG CAP PO SCH (22:58)
[2019-02-09] MEDS: TRAMADOL HCL 50 MG TAB PO PRN ×3 (02:09→20:03)
[2019-02-09 05:33] VITALS: BMI 20.8
[2019-02-09 06:42] LABS: Absolute Lymphocytes (CBC) 1.4 K/uL (0.7-4.9); Absolute Neutrophil 5.2 K/uL (1.8-8.0); Basophils % 0.7 % (0-1.3); Eosinophils % 2.2 % (0-4.4); Hematocrit 35.6 % (36.0-45.0); Lymphocytes % 17.8 % (15.3-44.8); MPV 7.9 fL (7.6-11.3); Monocytes % 12.4 % (3.3-12.3); RBC Red Blood Cell Count 3.91 M/uL (3.86-4.86)
[2019-02-09 07:00] LABS: Albumin 3.6 g/dL (3.4-5.0); BUN Blood Urea Nitrogen 7 mg/dL (7-18); Bicarbonate 29 mmol/L (21-32); Glucose Level 99 mg/dL (74-106); Magnesium 2.3 mg/dL (1.8-2.4); Potassium 4.3 mmol/L (3.5-5.1); Prealbumin 15.3 mg/dL (20-40); Sodium Level 141 mmol/L (136-145)
[2019-02-09 07:23] LABS: Urine Appearance CLEAR; Urine Bilirubin NEGATIVE (NEG); Urine Blood NEGATIVE (NEG); Urine Color YELLOW; Urine Glucose NEGATIVE (NEG); Urine Protein NEGATIVE (NEG); Urine Specific Gravity 1.015 (1.005-1.030); Urine Urobilinogen 0.2 mg/dL (0.2-1.0); Urine pH 6.5 (5.0-7.0)
[2019-02-09] MEDS: GABAPENTIN 300 MG CAP PO SCH ×2 (07:32→20:03)
[2019-02-09 08:06] LABS: Urine Bacteria <20 /HPF (<20); Urine Culture Reflex Order NOT NEEDED; Urine RBC <5 /HPF (NONE SEEN)
--- NOTE | 2019-02-09 09:37 | R.HP ---
FACILITY: [facility] ENCOUNTER DATE AND TIME: 02/09/2019 09:33 (CDT) MR#: [id number] NAME SARA CHEN ADDRESS: [address] [place] [address]: [place] [address] [address] PHONE: DATE OF : 1970 AGE: 48 SSN# [id number] GENDER: Female DEXTERITY Right-handed MARITAL STATUS RACE White PRE-HOSPITAL LIVING SETTING 01 - Home (private home/apt. board/care, assisted living, [place] [facility], transitional living) PRE-HOSPITAL LIVING WITH Family/Relatives ENCOUNTER PHYSICIAN: Dr. Ric Wild M.D. REFERRING DOCTOR: citlalli Perez DATE OF ADMISSION: 02/09/2019 09:34 (Central Daylight Time) REFERRING FACILITY [facility] HOME TYPE AND DETAILS: Type of home: single family house # of levels in the residence: 1 # of steps to enter the residence: 1 # of steps within the residence: 0 ADMISSION DIAGNOSIS: Left Femur Fracture ONSET DATE: 02/05/2019 PRIMARY DIAGNOSIS-RELATED SURGERIES: Closed Reduction with screw fixation of femoral nect fracture - performed by Adilson Bartlett on SECONDARY/COMORBID DIAGNOSES (TIERED): - N/A Osteoporosis HISTORY OF PRESENT ILLNESS (HPI): Pt. is a 48 yo Right-handed white female. On 02/05/2019 she was admitted to [facility] with diagnosis Left Femur Fracture . Her impairment category is Orthopaedic Disorders 08 - Unilateral Hip Fracture (08.11). Pre-morbidly, Pt. was independent/mod-I in Self-Care, Sphincter Control, Transfers Control, Locomotio n, Communication, and Social Cognition; and she had good Sphincter Control. Currently, she has deficits of Transfers Control, Locomotion, Endurance, Balance, Safety Awareness, a nd Self-Care. Pt. is now referred to [facility] for acute in-patient rehabilitation in order to maximize patient's functional independence in activities of daily living, strength, ROM, and mobi lity. Patient has realistic goal of being discharged at assistance level 6-Yulisa to reside at Home with Fam cara/Relatives. Sara Chen is a 48 year old female that lives in a single rich house with her 2 sons, has 1 step to front and no steps from the back/garage. Patient was independent without an assistive device. On 02/05/2019, she tripped outside her office and had a mechanical fall and was admitted to [facility] and treated. She is now medically stable but in need of 24-hour nursing, doctor supervision and oversite while receiving active and ongoing is reasonably expected to participate in 3hours of therapy a day/15 hours per week and receive care with an intensive interdisciplinary approach. MEDICATION ALLERGIES: Sulfa ENVIRONMENTAL ALLERGIES: None Known - Substance Allergies None Known - Other Allergies None Known PAST MEDICAL HISTORY: Osteoporosis PAST SURGICAL HISTORY: Gallbladder surgery Total Hysterectomy Lap surgery Right leg surgery FAMILY HISTORY: Family history is not contributory. SOCIAL HISTORY: - Home Living Family/Relatives REVIEW OF SYSTEMS: - Gen No Chills Fatigue No Fever - Eyes No Double Vision No itchiness - ENMT No Difficulty Swallowing - CVS No Chest Discomfort No Chest Pain Fatigue No Weight Gain - Resp No Cough No Shortness of Breath - GI Continent No Abdominal Pain No Constipation No Diarrhea - Continent No Kidney Pain No Painful Urination No Urinary Urgency - MSK Joint Pain No Muscle Cramps Stiffness - Skin No Itching No Rash No Suspicious Lesions - Neuro Coordination Difficulty No Difficulty with Concentration No Memory Loss No Seizures Weakness - Psych No Anxiety No Depression No HIV Exposure No Persistent Infections No Seasonal Allergies - Endo No Cold/Heat Intolerance No Excessive Hunger No Excessive Thirst No Excessive Urination PHYSICAL EXAM - Gen Alert and awake Lying in bed No apparent distress Oriented to: person, time, and place - Skin No breakdown No abnormalities - Eyes No abnormalities - ENMT No abnormalities - Neck No abnormalities - CVS RRR - Chest Clear - Abd +bowel sounds - GI nondistended Deferred - No abnormalities - Ext Mild left lower extremity edema. - MSK 4+/5 weakness in left lower extremity - Neuro 4/5 strength left lower extremity. - Psych No abnormalities VITAL SIGNS Temperature: 98.2 F SBP/DBP: 101/60 Pulse: 81 Resp: 16 NURSING: - Shower allowing shower - Skin care per protocol PRECAUTIONS: - Posterior Hip Precaution No adduction across midline No external rotation No hip flexion >90 degrees No internal rotation No wheel chair propulsion - Weight Bearing Precaution TTWB left LE ACTIVITIES OOB only with supervision FUNCTIONAL STATUS: - Self-Care A. Eating Ind Ind B. Grooming Ind Ind C. Bathing Ind sup D. Dressing - Upper Ind Ind E. Dressing - Lower Ind Christophe F. Toileting Ind Christophe - Sphincter Control G: Bladder control Ind Ind H: Bowel control Ind Ind - Transfers Control I. Bed/Chair/Wheelchair Ind Christophe J. Toilet Ind Christophe K. Tub/Shower Ind ADNO - Locomotion L. Walk/Wheelchair (C) Ind CGA L. Walk/Wheelchair (W) Ind CGA M. Stairs Ind ADNO - Communication N. Comprehension (B) Ind Ind O. Expression (B) Ind Ind - Social Cognition P. Social Interaction Ind Ind Q. Problem Solving Ind Ind R. Memory Ind Ind - Endurance Fair - Balance Fair - Safety Awareness Fair CURRENT FUNC. DEFICITS: Transfers Control, Locomotion, Endurance, Balance, Safety Awareness, and Self-Care ASSESSMENT: Pt. is a 48 yo Right-handed white female.On 02/05/2019 she was admitted to [facility] with diagnosis Left Femur Fracture.Her impairment category is Orthopaedic Disorders 08 - Unil ateral Hip Fracture (08.11).Pre-morbidly, Pt. was independent/mod-I in Self-Care, Sphincter Control, Transfers Control, Locomotion, Communication, and Social Cognition; and she had good Sphincter Contro l.Currently, she has deficits of Transfers Control, Locomotion, Endurance, Balance, Safety Awareness, and Self-Care.Pt. is now referred to [facility] for acute in-patient rehabili tation in order to maximize patient's functional independence in activities of daily living, strength , ROM, and mobility.- Rehab Goal Patient has realistic goal of being discharged at assistance level 6-Yulisa to reside at Home with Fam cara/Relatives. Sara Chen is a 48 year old female that lives in a single rich house with her 2 sons, has 1 step to front and no steps from the back/garage. Patient was independent without an assistive device. On 02/05/2019, she tripped outside her office and had a mechanical fall and was admitted to [facility] and treated. She is now medically stable but in need of 24-hour nursing, doctor supervision and oversite while receiving active and ongoing is reasonably expected to participate in 3hours of therapy a day/15 hours per week and receive care with an intensive interdisciplinary approach.REHAB PLAN: - Physical Therapy Decreased range of motion - to improve, our physical therapists will perform initial evaluation of pt 's status upon admission and devise an individualized program for increasing patient's Range of Motio n. Gait dysfunction - to improve, our physical therapists will perform initial evaluation of pt's status upon admission and devise an individualized program for Gait Training, and Wheel Chair mobility Inability to transfer - to improve, our physical therapists will perform initial evaluation of pt's s tatus upon admission and devise an individualized program for Bed mobility Need for home safety evaluation - to improve, our physical therapists will perform initial evaluation of pt's status upon admission and devise an individualized program for Home Evaluation Need in caregiver upon discharge - to improve, our physical therapists will perform initial evaluatio n of pt's status upon admission and devise an individualized program for Caregiver Training New precaution - to improve, our physical therapists will perform initial evaluation of pt's status u rito admission and devise an individualized program for Patient precaution education Edema - to improve, our physical therapists will perform initial evaluation of pt's status upon admi ssion and devise an individualized program for Elevation Training, and Lymphedema Therapy Poor balance - to improve, our physical therapists will perform initial evaluation of pt's status upo n admission and devise an individualized program for Balance Training Poor endurance - to improve, our physical therapists will perform initial evaluation of pt's status u rito admission and devise an individualized program for Endurance Training Weakness - to improve, our physical therapists will perform initial evaluation of pt's status upon ad mission and devise an individualized program for Aquatic Therapy, Neuromuscular Reeducation, and Stre ngthening Achieving independence - to improve, our physical therapists will perform initial evaluation of pt's status upon admission and devise an individualized program for Community Reintegration Activities - Occupational Therapy ADL deficits - to improve, our occupation therapists will perform initial evaluation of pt's status u rito admission and devise an individualized program for Bathing, Bed mobility, Community Reintegration , Cooking, Dressing, Eating, Fine Motor Skills, Grooming, Homemaking, Kitchen Mobility, Laundry, Shayla ent Education, Safety Awareness, Splinting - Positioning, Transfers(Toilet, Tub, Shower), and Wheel C hair Management Need for acute care physical therapist - to improve, our occupation therapists will perform initial evaluation of pt's s tatus upon admission and devise an individualized program for Caregiver Training Weakness - to improve, our occupation therapists will perform initial evaluation of pt's status upon admission and devise an individualized program for Aquatic Therapy, Balance, Endurance, UE ROM, and U E strengthening MEDICAL PLAN: - Anterior Hip Precaution No abduction No active extension No adduction across midline No external rotation No hip flexion >90 degrees No internal rotation - Diet - Liquid Texture Start Regular - Tube Feed Start N/A - Diet Type Start Regular - Posterior Hip Precaution No adduction across midline No external rotation No hip flexion >90 degrees No internal rotation No wheel chair propulsion - Weight Bearing Precaution TTWB left LE - Skin care per protocol - Diet - Solid Texture Regular - Shower shower DISCHARGE PLAN: - Estimated Length of Stay (days) 14. - Consensus on plan Discharge plan has been discussed with primary caregiver. Patient/Family is in agreement with the neftali n. Primary caregiver is in agreement with the plan. - Patient/Family Goals Return home with assistance. - Planned Living Setting Upon Discharge Home, to live with Family/Relatives. Transitional Living. SIGNATURE PANEL: (CDT)
--- NOTE | 2019-02-09 09:38 | PAPE ---
PATIENT: [facility] MR# [id number] REFERRING DOCTOR citlalli Perez EVALUATION DATE AND TIME 02/09/2019 09:38 (CDT) NAME GERSON CLARK DATE OF 1970 AGE 48 PHONE SSN# [id number] GENDER female EVALUATING PHYSICIAN Dr. Ric Wild M.D. ADMISSION DIAGNOSIS: Left Femur Fracture ONSET DATE 02/05/2019 SECONDARY/COMORBID DIAGNOSES TIERED: - N/A Osteoporosis POST-ADMISSION FUNCTIONAL/MEDICAL STATUS: - Bladder Same accident frequency: Ind - No accidents in the past 7 days - Bowel Same accident frequency: Ind - No accidents in the past 7 days - Walking Same score based on distance walked: 2(5149ft) - Wheelchair Same score based on distance traveled: 0(N/A) STATUS CHANGE EVALUATION: No change in Functional or Medical Status is identified compared with Pre-Admission screening. PATIENT NEEDS CLOSE MEDICAL SUPERVISION BY A REHABILITATION PHYSICIAN FOR: Bowel and Bladder Management Coordination of Treatment Team Medical and Co-Morbidity Management Wound Care Pain Management DVT Management PATIENT REQUIRES 24X7 REHAB NURSING FOR MEDICAL AND FUNCTIONAL MGT. OF THE FOLLOWING DEFICITS: ADL's Ambulation Bowel and Bladder Management Communication Disease Management Medication Management Patient/Family Education Providing Safe Environment Skin Integrity Transfers Pain Management DVT Management PATIENT REQUIRES INTENSIVE, COORDINATED INTERDISCIPLINARY APPROACH TO REHAB: Arranging Home Equipment/Services Discharge Planning Family Intervention/Training Shopper Insights Manager/Case Management LIST OF IDENTIFIED AND POTENTIAL PROBLEMS: Alteration in leisure activities Bladder, Incontinence Bowel, Incontinence Infection, Actual or Potential Mobility Impaired Pain, Alteration in Comfort Self Care Deficit Skin Integrity, Actual or Potential Urinary Tract Infection (UTI), Actual or Potential RISK FOR COMPLICATIONS - Osteoporosis Falls. Fractures (pathological). INTERVENTIONS - Osteoporosis Medications. Safety. PATIENT COULD BE AT RISK FOR COMPLICATIONS FROM ADVERSE MEDICAL CONDITIONS DUE TO HIS/HER COMORBIDITI ES AND THE RIGORS OF THE INTENSIVE REHABILLITATION PROGRAM. METHODS OR INTERVENTIONS TO AVOID COMPLIC ATIONS INCLUDE: - Deep Vein Thrombosis (DVT) Prophylaxis therapy for prevention . Sequential Compression Device (SCD). TE D Hose. - Bleeding Assess lab values and manage abnormalities. Nursing to teach precautions for anti-coagulation therapy . Wound to be assessed every shift. - Infection Clinical staff to assess and manage the signs and symptoms of infection including fever, redness, war mth, etc. - Urinary Tract Infection - Falls Patient will be evaluated for Fall Precautions and will be placed on Fall Precautions as indicated pe r protocol. - Skin Breakdown Nursing will assess skin daily using assessment tool and will place on Skin Breakdown Precautions as indicated per protocol. - Pain Clinical staff may employ non-medication methods such as massage, distraction, decrease stimulus, etc . as needed. Clinical staff will assess patient's pain level every shift per protocol to assess and e nsure pain management effectiveness. Medications will be given and the pain level re-assessed. PRELIMINARY PLAN OF CARE: - Physical Therapy Patient needs Physical Therapy for a daily minimum of 1.5 hours at least 5 out of 7 days, to improve: Mobility, Strengthening, Transfers, Stretching, ROM, Endurance, Ability to manage stairs, Gait, and Balance. - Rehabilitation Nursing Patient requires 24x7 Rehabilitation Nursing for: Pain Issues, Identifying and preventing risk factor s, Monitoring and reporting current medical conditions, Assisting with ambulation and transfer, Jaspal ting with all ADL-s, Teaching patients about disease process and medications, Family teaching, Provid ing safe environment, Bowel and Bladder Issues, Skin Integrity, and Medication Management. Patient needs Shopper Insights Manager and/or Case Management for: Discharge Planning, Arranging Home Equipmen t or Services, and Family Interventions. - Dietary and Nutrition Services Patient needs Dietary and Nutrition Services for: Adequate Nutrition, Nutritional Supplements, and Nu tritional Education. - Occupational Therapy Patient needs Occupational Therapy for a daily minimum of 1.5 hours at least 5 out of 7 days, to impr ove Activities of Daily Living, including: Eating, Grooming, Bathing, Dressing, Toileting, Toilet Tra nsfers, Community Reintegration, Higher functional activities, Adaptive Equipment, Splinting, Househo ld Tasks, and Other activities as determined. POTENTIAL FUNCTIONAL GOALS FOR PATIENT TO ACHIEVE BY DISCHARGE: - Safety Precaution Patient will remain free from falls or injury at time of discharge. - Bed Mobility Patient will perform bed mobility at 4-Christophe level of assistance. - Transfers Patient will complete transfers from bed to chair at 4-Christophe level of assistance. - Mobility Patient will ambulate 150 ft with 4-Christophe level of assistance with RW. PATIENT REHAB POTENTIAL Expected level of measurable improvement will be of a practical value to patient's functional capacit y or adaptations to impairments Has a viable Discharge Plan Medically appropriate; condition is sufficiently stable to participate in intensive rehab program Patient is able and expected to receive 3 hours of individualized therapy daily on at least 5 of ever y 7 days Patient's prognosis for significant practical improvement within a reasonable period of time appears Good DISCHARGE PLAN: - Estimated Length of Stay (days) 14. - Consensus on plan Discharge plan has been discussed with primary caregiver. Patient/Family is in agreement with the neftali n. Primary caregiver is in agreement with the plan. - Patient/Family Goals Return home with assistance. - Planned Living Setting Upon Discharge Home, to live with Family/Relatives. Transitional Living. CONCLUSION ON REHABILITATION NECESSITY: I have evaluated patient's pre-admission functional status and, comparing it to the patient's post-ad mission functional status now, I conclude that the pre-admission assessment was accurate. Patient's c ondition on admission supports the medical necessity of admission to IR[facility]. It is safe to proceed with patient's therapy program. SIGNATURE PANEL: (CDT)
[2019-02-09] MEDS: ENOXAPARIN 40 MG/0.4 ML SQ SCH (16:32)
[2019-02-09] MEDS: DOCUSATE NA/SENNA CONC 1 TAB PO SCH (20:03)
--- NOTE | 2019-02-10 01:02 | FAST ---
SHIFT START DATE/TIME: 02/09/2019 19:00 (CDT) SHIFT END DATE/TIME: 02/10/2019 07:00 (CDT) NAME GERSON CLARK DATE OF : 1970 DATE OF ADMISSION: 02/09/2019 09:34 (CDT) PHONE: AGE: 48 N# [id number] GENDER: Female ENCOUNTER PHYSICIAN: Dr. Ric Wild M.D. ADMISSION DIAGNOSIS: - Orthopaedic Disorders 08 - Unilateral Hip Fracture (08.11) Left Femur Fracture. EATING: Activity did not occur on this shift EATING - SCORE: 0-UNK GROOMING: Oral care Wash, rinse, and dry face Wash, rinse, and dry hands GROOMING - STEP 1: Does the patient require the assistance of a person or device, or need extra time when grooming? Yes. GROOMING - STEP 2: Does the patient require the assistance of a helper? No. The patient only requires an assistive devic e, OR takes more than reasonable time to groom, OR there is a concern for safety as the patient groom s GROOMING - SCORE: 6-LUCAS BATHING: Activity did not occur on this shift BATHING - SCORE: 0-UNK DRESSING - UPPER BODY: Patient is not dressing in public clothing ARTICLES SCORE Total number of steps: 0 DRESSING - UPPER BODY - SCORE: 0-UNK DRESSING - LOWER BODY: Patient is not dressing in public clothing ARTICLES SCORE Total number of steps: 0 DRESSING - LOWER BODY - SCORE: 0-UNK TOILETING: TOILETING - STEP 1: Does the patient require the assistance of a person or device, or need extra time with toileting? Yes . TOILETING - STEP 2: Does the patient require the assistance of a helper? Yes. TOILETING - STEP 3: How much assistance does the patient require from the helper? Hands-on assistance from the helper TOILETING - STEP 4: Of the 3 tasks: 1) Adjusting clothing prior to use, 2) Cleansing of perineal area, 3) Adjusting clot kayla after use; How many tasks does the patient perform WITHOUT assistance of the helper? Three tasks with steadying assistance from the helper TOILETING - SCORE: 4-MIN BLADDER MANAGEMENT: BLADDER MANAGEMENT - STEP 1: Does the patient control the bladder completely and intentionally without equipment or devices or med ications, and is always continent? No. BLADDER MANAGEMENT - STEP 2: Does the patient require the assistance of a helper? Yes. BLADDER MANAGEMENT - STEP 3: How much assistance does the patient require from the helper? Only supervision, stand-by, cuing, or c oaxing BLADDER MANAGEMENT - SCORE: 5-SUP BOWEL MANAGEMENT: Activity did not occur on this shift BOWEL MANAGEMENT - SCORE: 7-IND TRANSFERS: BED, CHAIR, WHEELCHAIR: TRANSFERS: BED, CHAIR, WHEELCHAIR - STEP 1: Does the patient require assistance of a person or device, or need extra time with bed, chair, or whe elchair transfers? Yes. TRANSFERS: BED, CHAIR, WHEELCHAIR - STEP 2: Does the patient require the assistance of a helper? Yes. TRANSFERS: BED, CHAIR, WHEELCHAIR - STEP 3: How much assistance does the patient require from the helper? Steadying/guiding assistance TRANSFERS: BED, CHAIR, WHEELCHAIR - SCORE: 4-MIN TRANSFERS: TOILET: TRANSFERS: TOILET - STEP 1: Does the patient require the assistance of a person or device, or need extra time with toilet transfe rs? Yes. TRANSFERS: TOILET - STEP 2: Does the patient require the assistance of a helper? Yes. TRANSFERS: TOILET - STEP 3: How much assistance does the patient require from the helper? Only supervision, cuing, coaxing, OR he lp to set out transfer equipment or to lock brakes and/or lift foot rests TRANSFERS: TOILET - SCORE: 5-SUP TRANSFERS: SHOWER: Activity did not occur on this shift TRANSFERS: SHOWER - SCORE: 0-UNK TRANSFERS: TUB: Activity did not occur on this shift TRANSFERS: TUB - SCORE: 0-UNK LOCOMOTION: WALK: Activity did not occur on this shift LOCOMOTION: WALK - SCORE: 0-UNK LOCOMOTION: WHEELCHAIR: Activity did not occur on this shift LOCOMOTION: WHEELCHAIR - SCORE: 0-UNK COMPREHENSION: COMPREHENSION: TYPE: Both COMPREHENSION - STEP 1: Does the patient require help from a person or device, or need extra time to understand complex and a bstract ideas (such as current events, finances, discharge planning, medical issues, relationships, e tc)? No. COMPREHENSION - STEP 2: Does the patient need extra time, require an assistive device (such as glasses for visual comprehensi on or a hearing aid for auditory comprehension) or does s/he have mild difficulty understanding compl ex and abstract information? Yes. COMPREHENSION - SCORE: 6-LUCAS EXPRESSION EXPRESSION: TYPE: Both EXPRESSION - STEP 1: Does the patient require help from a person or device, or need extra time expressing complex and abst ract ideas (such as current events, finances, discharge planning, medical issues, relationships, etc) ? No. EXPRESSION - STEP 2: Does the patient need extra time, require an assistive device (such as augmentive communication syste m or a communication board), OR does s/he have mild difficulty expressing complex and abstract ideas (including mild dysarthria or mild word-find problems)? No. EXPRESSION - SCORE: 7-IND SOCIAL INTERACTION: SOCIAL INTERACTION - STEP 1: Does the patient require a helper to interact with others in social and therapeutic situations? No. SOCIAL INTERACTION - STEP 2: Does the patient need extra time in social situations, OR does s/he interact with staff, other patien ts, and family members ONLY in structured environments, OR does s/he require medication for social in teraction? Yes, patient needs extra time SOCIAL INTERACTION - SCORE: 6-LUCAS PROBLEM SOLVING: PROBLEM SOLVING - STEP 1: Does the patient need help from a person or device, or need extra time to solve complex problems such as managing a checking account or confronting interpersonal problems? No. PROBLEM SOLVING - STEP 2: Does the patient require extra time to make decisions or solve problems, OR does s/he have slight dif ficulty reading, initiating, or self-correcting in unfamiliar situations? Yes, patient needs extra ti me. PROBLEM SOLVING - SCORE: 6-LUCAS MEMORY: MEMORY - STEP 1: Does the patient need help from a person or device, or need extra time to remember frequently encount ered people, daily routines, and executing requests? No. MEMORY - STEP 2: Does the patient have slight difficulty recognizing frequently encountered people, daily routines, or executing requests without the need for repetition or using self-initiated or environmental cues to remember? No. MEMORY - SCORE: 7-IND SIGNATURE PANEL: The following modified sections: Eating - Score, Grooming - Score, Dressing - Upper Body - Score, Emigdio ssing - Lower Body - Score, Toileting - Score, Bladder Management - Score, Bowel Management - Score, Transfers: Bed, Chair, Wheelchair - Score, Transfers: Toilet - Score, Transfers: Shower - Score, [place] sfers: Tub - Score, Locomotion: Walk - Score, Locomotion: Wheelchair - Score, Comprehension - Score, Expression - Score, Social Interaction - Score, Problem Solving - Score, Memory - Score were [electro nically] signed by Nat Aaron CNA on MonFeb 10 2019 01:01:42 GMT-0500 (Central Daylight Time)
[2019-02-10] MEDS: TRAMADOL HCL 50 MG TAB PO PRN ×2 (09:04→19:57)
[2019-02-10] MEDS: GABAPENTIN 300 MG CAP PO SCH ×2 (09:04→19:57)
--- NOTE | 2019-02-10 09:32 | FAST ---
ENCOUNTER DATE AND TIME: 02/09/2019 08:00 (CDT) NAME GERSON CLARK DATE OF : 1970 DATE OF ADMISSION: 02/09/2019 09:34 (CDT) PHONE: AGE: 48 SSN# [id number] GENDER: Female ENCOUNTER PHYSICIAN: Dr. Ric Wild M.D. ADMISSION DIAGNOSIS: - Orthopaedic Disorders 08 - Unilateral Hip Fracture (08.11) Left Femur Fracture. EATING: EATING - STEP 1: Does the patient require the assistance of a person or device, or need extra time when eating? No. EATING - SCORE: 7-IND GROOMING: Comb/brush hair Oral care Wash, rinse, and dry face Wash, rinse, and dry hands GROOMING - STEP 1: Does the patient require the assistance of a person or device, or need extra time when grooming? No. GROOMING - SCORE: 7-IND BATHING: Abdomen Buttocks Chest Left arm Left lower leg and foot Left upper leg Perineal area Right arm Right lower leg and foot Right upper leg BATHING - STEP 1: Does the patient require the assistance of a person or device, or need extra time when bathing? Yes. BATHING - STEP 2: Does the patient require the assistance of a helper? Yes. BATHING - STEP 3: How much assistance does the patient require from the helper? Only incidental help such as placement of a wash cloth in his/her hand a few times as s/he bathes OR help to bathe just one or two areas of the body BATHING - SCORE: 4-MIN DRESSING - UPPER BODY: T-shirt/pullover shirt (four steps) ARTICLES SCORE Total number of steps: 4 DRESSING - UPPER BODY - STEP 1: Does the patient require help from a person or device, or need extra time when dressing above the [address]? Yes. DRESSING - UPPER BODY - STEP 2: Does the patient require the assistance of a helper? Yes. DRESSING - UPPER BODY - STEP 3: Does the helper touch the patient while dressing? No. DRESSING - UPPER BODY - SCORE: 5-SUP DRESSING - LOWER BODY: Elastic waist pants (three steps) Sock - Left foot (one step) Sock - Right foot (one step) Tied or buckled shoe - Right foot (two steps) Underwear (three steps) ARTICLES SCORE Total number of steps: 10 DRESSING - LOWER BODY - STEP 1: Does the patient require help from a person or device, or need extra time when dressing below the [address]? Yes. DRESSING - LOWER BODY - STEP 2: Does the patient require the assistance of a helper? Yes. DRESSING - LOWER BODY - STEP 3: Does the helper touch the patient while dressing? Yes. DRESSING - LOWER BODY - STEP 4: How many of the total steps does the patient complete on his/her own? 7 DRESSING - LOWER BODY - SCORE: 3-MOD TOILETING: TOILETING - STEP 1: Does the patient require the assistance of a person or device, or need extra time with toileting? Yes . TOILETING - STEP 2: Does the patient require the assistance of a helper? Yes. TOILETING - STEP 3: How much assistance does the patient require from the helper? Hands-on assistance from the helper TOILETING - STEP 4: Of the 3 tasks: 1) Adjusting clothing prior to use, 2) Cleansing of perineal area, 3) Adjusting clot kayla after use; How many tasks does the patient perform WITHOUT assistance of the helper? Three tasks with steadying assistance from the helper TOILETING - SCORE: 4-MIN BLADDER MANAGEMENT: Activity did not occur on this shift BLADDER MANAGEMENT - SCORE: 7-IND BOWEL MANAGEMENT: Activity did not occur on this shift BOWEL MANAGEMENT - SCORE: 7-IND TRANSFERS: BED, CHAIR, WHEELCHAIR: Activity did not occur on this shift TRANSFERS: BED, CHAIR, WHEELCHAIR - SCORE: 0-UNK TRANSFERS: TOILET: TRANSFERS: TOILET - STEP 1: Does the patient require the assistance of a person or device, or need extra time with toilet transfe rs? Yes. TRANSFERS: TOILET - STEP 2: Does the patient require the assistance of a helper? Yes. TRANSFERS: TOILET - STEP 3: How much assistance does the patient require from the helper? Patient performs half or more of the tr ansferring tasks TRANSFERS: TOILET - STEP 4: Does the patient need only incidental help such as contact guard or steadying during toilet transfer? Yes. TRANSFERS: TOILET - SCORE: 4-MIN TRANSFERS: SHOWER: TRANSFERS: SHOWER - STEP 1: Does the patient require the assistance of a person or device, or need extra time with shower transfe rs? Yes. TRANSFERS: SHOWER - STEP 2: Does the patient require the assistance of a helper? Yes. TRANSFERS: SHOWER - STEP 3: How much assistance does the patient require from the helper? Only incidental help such as contact gu arding or steadying during shower transfers, or help to lift one leg into the shower TRANSFERS: SHOWER - SCORE: 4-MIN TRANSFERS: TUB: Activity did not occur on this shift TRANSFERS: TUB - SCORE: 0-UNK LOCOMOTION: WALK: Activity did not occur on this shift LOCOMOTION: WALK - SCORE: 0-UNK LOCOMOTION: WHEELCHAIR: Activity did not occur on this shift LOCOMOTION: WHEELCHAIR - SCORE: 0-UNK LOCOMOTION: STAIRS: Activity did not occur on this shift LOCOMOTION: STAIRS - SCORE: 0-UNK COMPREHENSION: COMPREHENSION: TYPE: Both COMPREHENSION - STEP 1: Does the patient require help from a person or device, or need extra time to understand complex and a bstract ideas (such as current events, finances, discharge planning, medical issues, relationships, e tc)? No. COMPREHENSION - STEP 2: Does the patient need extra time, require an assistive device (such as glasses for visual comprehensi on or a hearing aid for auditory comprehension) or does s/he have mild difficulty understanding compl ex and abstract information? No. COMPREHENSION - SCORE: 7-IND EXPRESSION EXPRESSION: TYPE: Both EXPRESSION - STEP 1: Does the patient require help from a person or device, or need extra time expressing complex and abst ract ideas (such as current events, finances, discharge planning, medical issues, relationships, etc) ? No. EXPRESSION - STEP 2: Does the patient need extra time, require an assistive device (such as augmentive communication syste m or a communication board), OR does s/he have mild difficulty expressing complex and abstract ideas (including mild dysarthria or mild word-find problems)? No. EXPRESSION - SCORE: 7-IND SOCIAL INTERACTION: SOCIAL INTERACTION - STEP 1: Does the patient require a helper to interact with others in social and therapeutic situations? No. SOCIAL INTERACTION - STEP 2: Does the patient need extra time in social situations, OR does s/he interact with staff, other patien ts, and family members ONLY in structured environments, OR does s/he require medication for social in teraction? No. SOCIAL INTERACTION - SCORE: 7-IND PROBLEM SOLVING: PROBLEM SOLVING - STEP 1: Does the patient need help from a person or device, or need extra time to solve complex problems such as managing a checking account or confronting interpersonal problems? No. PROBLEM SOLVING - STEP 2: Does the patient require extra time to make decisions or solve problems, OR does s/he have slight dif ficulty reading, initiating, or self-correcting in unfamiliar situations? No. PROBLEM SOLVING - SCORE: 7-IND MEMORY: MEMORY - STEP 1: Does the patient need help from a person or device, or need extra time to remember frequently encount ered people, daily routines, and executing requests? No. MEMORY - STEP 2: Does the patient have slight difficulty recognizing frequently encountered people, daily routines, or executing requests without the need for repetition or using self-initiated or environmental cues to remember? No. MEMORY - SCORE: 7-IND SIGNATURE PANEL: The following modified sections: Eating - Score, Grooming - Score, Bathing - Score, Dressing - Upper Body - Score, Dressing - Lower Body - Score, Toileting - Score, Transfers: Bed, Chair, Wheelchair - S core, Transfers: Toilet - Score, Transfers: Tub - Score, Transfers: Shower - Score, Comprehension - S core, Expression - Score, Social Interaction - Score, Problem Solving - Score, Memory - Score were [e lectronically] signed by Lauren Stark OT on MonFeb 10 2019 09:31:25 T-0500 ([facility])
--- NOTE | 2019-02-10 11:30 | FAST ---
SHIFT START DATE/TIME: 02/10/2019 07:00 (CDT) SHIFT END DATE/TIME: 02/10/2019 19:00 (CDT) NAME GERSON CLARK DATE OF : 1970 DATE OF ADMISSION: 02/09/2019 09:34 (CDT) PHONE: AGE: 48 N# [id number] GENDER: Female ENCOUNTER PHYSICIAN: Dr. Ric Wild M.D. ADMISSION DIAGNOSIS: - Orthopaedic Disorders 08 - Unilateral Hip Fracture (08.11) Left Femur Fracture. EATING: EATING - STEP 1: Does the patient require the assistance of a person or device, or need extra time when eating? Yes. EATING - STEP 2: Does the patient require the assistance of a helper? No, patient only requires an assistive device, O R s/he takes more than reasonable time to eat, OR there is a safety concern, OR s/he requires modifie d food consistency EATING - SCORE: 6-LUCAS GROOMING: Comb/brush hair Oral care Wash, rinse, and dry face Wash, rinse, and dry hands GROOMING - STEP 1: Does the patient require the assistance of a person or device, or need extra time when grooming? Yes. GROOMING - STEP 2: Does the patient require the assistance of a helper? No. The patient only requires an assistive devic e, OR takes more than reasonable time to groom, OR there is a concern for safety as the patient groom s GROOMING - SCORE: 6-LUCAS BATHING: Activity did not occur on this shift BATHING - SCORE: 0-UNK DRESSING - UPPER BODY: Activity did not occur on this shift ARTICLES SCORE Total number of steps: 0 DRESSING - UPPER BODY - SCORE: 0-UNK DRESSING - LOWER BODY: Activity did not occur on this shift ARTICLES SCORE Total number of steps: 0 DRESSING - LOWER BODY - SCORE: 0-UNK TOILETING: TOILETING - STEP 1: Does the patient require the assistance of a person or device, or need extra time with toileting? Yes . TOILETING - STEP 2: Does the patient require the assistance of a helper? Yes. TOILETING - STEP 3: How much assistance does the patient require from the helper? Hands-on assistance from the helper TOILETING - STEP 4: Of the 3 tasks: 1) Adjusting clothing prior to use, 2) Cleansing of perineal area, 3) Adjusting clot kayla after use; How many tasks does the patient perform WITHOUT assistance of the helper? Three tasks with steadying assistance from the helper TOILETING - SCORE: 4-MIN BLADDER MANAGEMENT: BLADDER MANAGEMENT - STEP 1: Does the patient control the bladder completely and intentionally without equipment or devices or med ications, and is always continent? Yes. BLADDER MANAGEMENT - SCORE: 7-IND BLADDER MANAGEMENT - FREQUENCY OF ACCIDENTS: BLADDER MANAGEMENT(FA) - STEP 1: How many accidents has the patient had during the current shift? 0 BOWEL MANAGEMENT: Activity did not occur on this shift BOWEL MANAGEMENT - SCORE: 7-IND BOWEL MANAGEMENT - FREQUENCY OF ACCIDENTS: BOWEL MANAGEMENT(FA) - STEP 1: How many accidents has the patient had during the current shift? 0 TRANSFERS: BED, CHAIR, WHEELCHAIR: TRANSFERS: BED, CHAIR, WHEELCHAIR - STEP 1: Does the patient require assistance of a person or device, or need extra time with bed, chair, or whe elchair transfers? Yes. TRANSFERS: BED, CHAIR, WHEELCHAIR - STEP 2: Does the patient require the assistance of a helper? Yes. TRANSFERS: BED, CHAIR, WHEELCHAIR - STEP 3: How much assistance does the patient require from the helper? Steadying/guiding assistance TRANSFERS: BED, CHAIR, WHEELCHAIR - SCORE: 4-MIN TRANSFERS: TOILET: TRANSFERS: TOILET - STEP 1: Does the patient require the assistance of a person or device, or need extra time with toilet transfe rs? Yes. TRANSFERS: TOILET - STEP 2: Does the patient require the assistance of a helper? Yes. TRANSFERS: TOILET - STEP 3: How much assistance does the patient require from the helper? Only supervision, cuing, coaxing, OR he lp to set out transfer equipment or to lock brakes and/or lift foot rests TRANSFERS: TOILET - SCORE: 5-SUP TRANSFERS: SHOWER: Activity did not occur on this shift TRANSFERS: SHOWER - SCORE: 0-UNK TRANSFERS: TUB: Activity did not occur on this shift TRANSFERS: TUB - SCORE: 0-UNK LOCOMOTION: WALK: Activity did not occur on this shift LOCOMOTION: WALK - SCORE: 0-UNK LOCOMOTION: WHEELCHAIR: LOCOMOTION: WHEELCHAIR - STEP 1: Does the patient need help to go 150 feet in a wheelchair? Yes. LOCOMOTION: WHEELCHAIR - STEP 2: How much assistance does the patient need from the helper? Only supervision, cuing, or coaxing LOCOMOTION: WHEELCHAIR - SCORE: 5-SUP COMPREHENSION: COMPREHENSION: TYPE: Both COMPREHENSION - STEP 1: Does the patient require help from a person or device, or need extra time to understand complex and a bstract ideas (such as current events, finances, discharge planning, medical issues, relationships, e tc)? No. COMPREHENSION - STEP 2: Does the patient need extra time, require an assistive device (such as glasses for visual comprehensi on or a hearing aid for auditory comprehension) or does s/he have mild difficulty understanding compl ex and abstract information? No. COMPREHENSION - SCORE: 7-IND EXPRESSION EXPRESSION: TYPE: Both EXPRESSION - STEP 1: Does the patient require help from a person or device, or need extra time expressing complex and abst ract ideas (such as current events, finances, discharge planning, medical issues, relationships, etc) ? No. EXPRESSION - STEP 2: Does the patient need extra time, require an assistive device (such as augmentive communication syste m or a communication board), OR does s/he have mild difficulty expressing complex and abstract ideas (including mild dysarthria or mild word-find problems)? Yes. EXPRESSION - SCORE: 6-LUCAS SOCIAL INTERACTION: SOCIAL INTERACTION - STEP 1: Does the patient require a helper to interact with others in social and therapeutic situations? No. SOCIAL INTERACTION - STEP 2: Does the patient need extra time in social situations, OR does s/he interact with staff, other patien ts, and family members ONLY in structured environments, OR does s/he require medication for social in teraction? No. SOCIAL INTERACTION - SCORE: 7-IND PROBLEM SOLVING: PROBLEM SOLVING - STEP 1: Does the patient need help from a person or device, or need extra time to solve complex problems such as managing a checking account or confronting interpersonal problems? No. PROBLEM SOLVING - STEP 2: Does the patient require extra time to make decisions or solve problems, OR does s/he have slight dif ficulty reading, initiating, or self-correcting in unfamiliar situations? Yes, patient needs extra ti me. PROBLEM SOLVING - SCORE: 6-LUCAS MEMORY: MEMORY - STEP 1: Does the patient need help from a person or device, or need extra time to remember frequently encount ered people, daily routines, and executing requests? No. MEMORY - STEP 2: Does the patient have slight difficulty recognizing frequently encountered people, daily routines, or executing requests without the need for repetition or using self-initiated or environmental cues to remember? No. MEMORY - SCORE: 7-IND SIGNATURE PANEL: The following modified sections: Eating - Score, Grooming - Score, Bathing - Score, Dressing - Upper Body - Score, Dressing - Lower Body - Score, Toileting - Score, Bladder Management - Score, Bowel Man agement - Score, Transfers: Bed, Chair, Wheelchair - Score, Transfers: Toilet - Score, Transfers: Patria wer - Score, Transfers: Tub - Score, Locomotion: Walk - Score, Locomotion: Wheelchair - Score, Compre hension - Score, Expression - Score, Social Interaction - Score, Problem Solving - Score, Memory - Sc ore were [electronically] signed by April Storey C.N.A. on MonFeb 10 2019 11:29:53 T-0500 ([facility] [place])
[2019-02-10] MEDS: ENOXAPARIN 40 MG/0.4 ML SQ SCH (16:46)
[2019-02-10] MEDS: DOCUSATE NA/SENNA CONC 1 TAB PO SCH (20:01)
[2019-02-10] MEDS: MAGNESIUM OXIDE 400 MG TAB PO SCH (22:49)
[2019-02-10] MEDS: BACLOFEN 10 MG TAB PO PRN (22:49)
[2019-02-10] MEDS ORDERED: MELATONIN 3 MG TABLET PO PRN (22:52)
--- NOTE | 2019-02-11 01:14 | FAST ---
SHIFT START DATE/TIME: 02/10/2019 19:00 (CDT) SHIFT END DATE/TIME: 02/11/2019 07:00 (CDT) NAME GERSON CLARK DATE OF : 1970 DATE OF ADMISSION: 02/09/2019 09:34 (CDT) PHONE: AGE: 48 N# [id number] GENDER: Female ENCOUNTER PHYSICIAN: Dr. Ric Wild M.D. ADMISSION DIAGNOSIS: - Orthopaedic Disorders 08 - Unilateral Hip Fracture (08.11) Left Femur Fracture. EATING: Activity did not occur on this shift EATING - SCORE: 0-UNK GROOMING: Oral care Wash, rinse, and dry hands GROOMING - STEP 1: Does the patient require the assistance of a person or device, or need extra time when grooming? Yes. GROOMING - STEP 2: Does the patient require the assistance of a helper? No. The patient only requires an assistive devic e, OR takes more than reasonable time to groom, OR there is a concern for safety as the patient groom s GROOMING - SCORE: 6-LUCAS BATHING: Activity did not occur on this shift BATHING - SCORE: 0-UNK DRESSING - UPPER BODY: Patient is not dressing in public clothing ARTICLES SCORE Total number of steps: 0 DRESSING - UPPER BODY - SCORE: 0-UNK DRESSING - LOWER BODY: Patient is not dressing in public clothing ARTICLES SCORE Total number of steps: 0 DRESSING - LOWER BODY - SCORE: 0-UNK TOILETING: TOILETING - STEP 1: Does the patient require the assistance of a person or device, or need extra time with toileting? Yes . TOILETING - STEP 2: Does the patient require the assistance of a helper? Yes. TOILETING - STEP 3: How much assistance does the patient require from the helper? Only supervision TOILETING - SCORE: 5-SUP BLADDER MANAGEMENT: BLADDER MANAGEMENT - STEP 1: Does the patient control the bladder completely and intentionally without equipment or devices or med ications, and is always continent? Yes. BLADDER MANAGEMENT - SCORE: 7-IND BOWEL MANAGEMENT: BOWEL MANAGEMENT - STEP 1: Does the patient control bowels completely and intentionally without equipment devices or medications AND is always continent? No. BOWEL MANAGEMENT - STEP 2: Does the patient require the assistance of a helper? No, patient requires medication for control such as stool softeners, suppositories, laxatives, enemas, or OTC medications BOWEL MANAGEMENT - SCORE: 6-LUCAS TRANSFERS: BED, CHAIR, WHEELCHAIR: TRANSFERS: BED, CHAIR, WHEELCHAIR - STEP 1: Does the patient require assistance of a person or device, or need extra time with bed, chair, or whe elchair transfers? Yes. TRANSFERS: BED, CHAIR, WHEELCHAIR - STEP 2: Does the patient require the assistance of a helper? Yes. TRANSFERS: BED, CHAIR, WHEELCHAIR - STEP 3: How much assistance does the patient require from the helper? Steadying/guiding assistance TRANSFERS: BED, CHAIR, WHEELCHAIR - SCORE: 4-MIN TRANSFERS: TOILET: TRANSFERS: TOILET - STEP 1: Does the patient require the assistance of a person or device, or need extra time with toilet transfe rs? Yes. TRANSFERS: TOILET - STEP 2: Does the patient require the assistance of a helper? No. Patient only requires an assistive device dacosta ch as a grab bar or special seat, OR s/he takes more than reasonable time to perform toilet transfers , OR there is a safety concern when s/he performs toilet transfers. TRANSFERS: TOILET - SCORE: 6-LUCAS TRANSFERS: SHOWER: Activity did not occur on this shift TRANSFERS: SHOWER - SCORE: 0-UNK TRANSFERS: TUB: Activity did not occur on this shift TRANSFERS: TUB - SCORE: 0-UNK LOCOMOTION: WALK: Activity did not occur on this shift LOCOMOTION: WALK - SCORE: 0-UNK LOCOMOTION: WHEELCHAIR: Activity did not occur on this shift LOCOMOTION: WHEELCHAIR - SCORE: 0-UNK COMPREHENSION: COMPREHENSION: TYPE: Both COMPREHENSION - STEP 1: Does the patient require help from a person or device, or need extra time to understand complex and a bstract ideas (such as current events, finances, discharge planning, medical issues, relationships, e tc)? No. COMPREHENSION - STEP 2: Does the patient need extra time, require an assistive device (such as glasses for visual comprehensi on or a hearing aid for auditory comprehension) or does s/he have mild difficulty understanding compl ex and abstract information? Yes. COMPREHENSION - SCORE: 6-LUCAS EXPRESSION EXPRESSION: TYPE: Both EXPRESSION - STEP 1: Does the patient require help from a person or device, or need extra time expressing complex and abst ract ideas (such as current events, finances, discharge planning, medical issues, relationships, etc) ? No. EXPRESSION - STEP 2: Does the patient need extra time, require an assistive device (such as augmentive communication syste m or a communication board), OR does s/he have mild difficulty expressing complex and abstract ideas (including mild dysarthria or mild word-find problems)? No. EXPRESSION - SCORE: 7-IND SOCIAL INTERACTION: SOCIAL INTERACTION - STEP 1: Does the patient require a helper to interact with others in social and therapeutic situations? No. SOCIAL INTERACTION - STEP 2: Does the patient need extra time in social situations, OR does s/he interact with staff, other patien ts, and family members ONLY in structured environments, OR does s/he require medication for social in teraction? No. SOCIAL INTERACTION - SCORE: 7-IND PROBLEM SOLVING: PROBLEM SOLVING - STEP 1: Does the patient need help from a person or device, or need extra time to solve complex problems such as managing a checking account or confronting interpersonal problems? No. PROBLEM SOLVING - STEP 2: Does the patient require extra time to make decisions or solve problems, OR does s/he have slight dif ficulty reading, initiating, or self-correcting in unfamiliar situations? Yes, patient needs extra ti me. PROBLEM SOLVING - SCORE: 6-LUCAS MEMORY: MEMORY - STEP 1: Does the patient need help from a person or device, or need extra time to remember frequently encount ered people, daily routines, and executing requests? No. MEMORY - STEP 2: Does the patient have slight difficulty recognizing frequently encountered people, daily routines, or executing requests without the need for repetition or using self-initiated or environmental cues to remember? No. MEMORY - SCORE: 7-IND SIGNATURE PANEL: The following modified sections: Eating - Score, Grooming - Score, Dressing - Upper Body - Score, Emigdio ssing - Lower Body - Score, Toileting - Score, Bladder Management - Score, Bowel Management - Score, Transfers: Bed, Chair, Wheelchair - Score, Transfers: Toilet - Score, Transfers: Shower - Score, [place] sfers: Tub - Score, Locomotion: Walk - Score, Locomotion: Wheelchair - Score, Comprehension - Score, Expression - Score, Social Interaction - Score, Problem Solving - Score, Memory - Score were [electro nically] signed by Nat Aaron CNA on MonFeb 11 2019 01:13:28 GMT-0500 (Central Daylight Time)
[2019-02-11] MEDS: TRAMADOL HCL 50 MG TAB PO PRN ×2 (06:11→20:13)
[2019-02-11] MEDS: GABAPENTIN 300 MG CAP PO SCH ×2 (07:39→20:12)
[2019-02-11] MEDS: MAGNESIUM OXIDE 400 MG TAB PO SCH ×2 (07:39→20:12)
--- NOTE | 2019-02-11 12:28 | FAST ---
ENCOUNTER DATE AND TIME: 02/11/2019 08:00 (CDT) NAME GERSON CLARK DATE OF : 1970 DATE OF ADMISSION: 02/09/2019 09:34 (CDT) PHONE: AGE: 48 SSN# [id number] GENDER: Female ENCOUNTER PHYSICIAN: Dr. Ric Wild M.D. ADMISSION DIAGNOSIS: - Orthopaedic Disorders 08 - Unilateral Hip Fracture (08.11) Left Femur Fracture. EATING: Activity did not occur on this shift EATING - SCORE: 0-UNK GROOMING: Activity did not occur on this shift GROOMING - SCORE: 0-UNK BATHING: Activity did not occur on this shift BATHING - SCORE: 0-UNK DRESSING - UPPER BODY: Activity did not occur on this shift Patient is not dressing in public clothing ARTICLES SCORE Total number of steps: 0 DRESSING - UPPER BODY - SCORE: 0-UNK DRESSING - LOWER BODY: Activity did not occur on this shift Patient is not dressing in public clothing ARTICLES SCORE Total number of steps: 0 DRESSING - LOWER BODY - SCORE: 0-UNK TOILETING: Activity did not occur on this shift TOILETING - SCORE: 0-UNK BLADDER MANAGEMENT: Activity did not occur on this shift BLADDER MANAGEMENT - SCORE: 7-IND BOWEL MANAGEMENT: Activity did not occur on this shift BOWEL MANAGEMENT - SCORE: 7-IND TRANSFERS: BED, CHAIR, WHEELCHAIR: TRANSFERS: BED, CHAIR, WHEELCHAIR - STEP 1: Does the patient require assistance of a person or device, or need extra time with bed, chair, or whe elchair transfers? Yes. TRANSFERS: BED, CHAIR, WHEELCHAIR - STEP 2: Does the patient require the assistance of a helper? No. Patient only requires an assistive device fo r bed, chair, wheelchair transfers such as a sliding board, grab bar, or brace, OR s/he takes more th an reasonable time, OR there is a safety concern when s/he performs the transfers TRANSFERS: BED, CHAIR, WHEELCHAIR - SCORE: 6-LUCAS TRANSFERS: TOILET: Activity did not occur on this shift TRANSFERS: TOILET - SCORE: 0-UNK TRANSFERS: SHOWER: Activity did not occur on this shift TRANSFERS: SHOWER - SCORE: 0-UNK TRANSFERS: TUB: Activity did not occur on this shift TRANSFERS: TUB - SCORE: 0-UNK LOCOMOTION: WALK: LOCOMOTION: WALK - STEP 1: Does the patient need help from a person or device, or need extra time to walk 150 feet? No. LOCOMOTION: WALK - STEP 2: Does the patient need an assistive device (such as an orthosis, prosthesis, crutches, or walker) to g o 150 feet, OR does s/he take more than reasonable time, OR is there a concern for safety? Yes, the p atient needs an assistive device LOCOMOTION: WALK - SCORE: 6-LUCAS LOCOMOTION: WHEELCHAIR: LOCOMOTION: WHEELCHAIR - STEP 1: Does the patient need help to go 150 feet in a wheelchair? No. LOCOMOTION: WHEELCHAIR - SCORE: 6-LUCAS LOCOMOTION: STAIRS: Activity did not occur on this shift LOCOMOTION: STAIRS - SCORE: 0-UNK COMPREHENSION: COMPREHENSION - SCORE: 0-UNK EXPRESSION EXPRESSION - SCORE: 0-UNK SOCIAL INTERACTION: SOCIAL INTERACTION - SCORE: 0-UNK PROBLEM SOLVING: PROBLEM SOLVING - SCORE: 0-UNK MEMORY: MEMORY - SCORE: 0-UNK SIGNATURE PANEL: The following modified sections: Transfers: Bed, Chair, Wheelchair - Score, Transfers: Toilet - Score , Locomotion: Walk - Score, Locomotion: Wheelchair - Score, Locomotion: Stairs - Score were [electron ically] signed by Nereida Noble PTA on MonFeb 11 2019 12:27:49 GMT-0500 (Central Daylight Time)
--- NOTE | 2019-02-11 14:29 | FAST ---
SHIFT START DATE/TIME: 02/11/2019 07:00 (CDT) SHIFT END DATE/TIME: 02/11/2019 19:00 (CDT) NAME GERSON CLARK DATE OF : 1970 DATE OF ADMISSION: 02/09/2019 09:34 (CDT) PHONE: AGE: 48 N# [id number] GENDER: Female ENCOUNTER PHYSICIAN: Dr. Ric Wild M.D. ADMISSION DIAGNOSIS: - Orthopaedic Disorders 08 - Unilateral Hip Fracture (08.11) Left Femur Fracture. EATING: EATING - STEP 1: Does the patient require the assistance of a person or device, or need extra time when eating? No. EATING - SCORE: 7-IND GROOMING: Comb/brush hair Oral care GROOMING - STEP 1: Does the patient require the assistance of a person or device, or need extra time when grooming? Yes. GROOMING - STEP 2: Does the patient require the assistance of a helper? No. The patient only requires an assistive devic e, OR takes more than reasonable time to groom, OR there is a concern for safety as the patient groom s GROOMING - SCORE: 6-LUCAS BATHING: Activity did not occur on this shift BATHING - SCORE: 0-UNK DRESSING - UPPER BODY: Activity did not occur on this shift ARTICLES SCORE Total number of steps: 0 DRESSING - UPPER BODY - SCORE: 0-UNK DRESSING - LOWER BODY: Activity did not occur on this shift ARTICLES SCORE Total number of steps: 0 DRESSING - LOWER BODY - SCORE: 0-UNK TOILETING: TOILETING - STEP 1: Does the patient require the assistance of a person or device, or need extra time with toileting? Yes . TOILETING - STEP 2: Does the patient require the assistance of a helper? Yes. TOILETING - STEP 3: How much assistance does the patient require from the helper? Only supervision TOILETING - SCORE: 5-SUP BLADDER MANAGEMENT: BLADDER MANAGEMENT - STEP 1: Does the patient control the bladder completely and intentionally without equipment or devices or med ications, and is always continent? Yes. BLADDER MANAGEMENT - SCORE: 7-IND BOWEL MANAGEMENT: BOWEL MANAGEMENT - STEP 1: Does the patient control bowels completely and intentionally without equipment devices or medications AND is always continent? Yes. BOWEL MANAGEMENT - SCORE: 7-IND TRANSFERS: BED, CHAIR, WHEELCHAIR: TRANSFERS: BED, CHAIR, WHEELCHAIR - STEP 1: Does the patient require assistance of a person or device, or need extra time with bed, chair, or whe elchair transfers? Yes. TRANSFERS: BED, CHAIR, WHEELCHAIR - STEP 2: Does the patient require the assistance of a helper? Yes. TRANSFERS: BED, CHAIR, WHEELCHAIR - STEP 3: How much assistance does the patient require from the helper? Only supervision TRANSFERS: BED, CHAIR, WHEELCHAIR - SCORE: 5-SUP TRANSFERS: TOILET: TRANSFERS: TOILET - STEP 1: Does the patient require the assistance of a person or device, or need extra time with toilet transfe rs? Yes. TRANSFERS: TOILET - STEP 2: Does the patient require the assistance of a helper? Yes. TRANSFERS: TOILET - STEP 3: How much assistance does the patient require from the helper? Only supervision, cuing, coaxing, OR he lp to set out transfer equipment or to lock brakes and/or lift foot rests TRANSFERS: TOILET - SCORE: 5-SUP TRANSFERS: SHOWER: Activity did not occur on this shift TRANSFERS: SHOWER - SCORE: 0-UNK TRANSFERS: TUB: Activity did not occur on this shift TRANSFERS: TUB - SCORE: 0-UNK LOCOMOTION: WALK: Activity did not occur on this shift LOCOMOTION: WALK - SCORE: 0-UNK LOCOMOTION: WHEELCHAIR: Activity did not occur on this shift LOCOMOTION: WHEELCHAIR - SCORE: 0-UNK COMPREHENSION: COMPREHENSION: TYPE: Both COMPREHENSION - STEP 1: Does the patient require help from a person or device, or need extra time to understand complex and a bstract ideas (such as current events, finances, discharge planning, medical issues, relationships, e tc)? No. COMPREHENSION - STEP 2: Does the patient need extra time, require an assistive device (such as glasses for visual comprehensi on or a hearing aid for auditory comprehension) or does s/he have mild difficulty understanding compl ex and abstract information? No. COMPREHENSION - SCORE: 7-IND EXPRESSION EXPRESSION: TYPE: Both EXPRESSION - STEP 1: Does the patient require help from a person or device, or need extra time expressing complex and abst ract ideas (such as current events, finances, discharge planning, medical issues, relationships, etc) ? No. EXPRESSION - STEP 2: Does the patient need extra time, require an assistive device (such as augmentive communication syste m or a communication board), OR does s/he have mild difficulty expressing complex and abstract ideas (including mild dysarthria or mild word-find problems)? No. EXPRESSION - SCORE: 7-IND SOCIAL INTERACTION: SOCIAL INTERACTION - STEP 1: Does the patient require a helper to interact with others in social and therapeutic situations? No. SOCIAL INTERACTION - STEP 2: Does the patient need extra time in social situations, OR does s/he interact with staff, other patien ts, and family members ONLY in structured environments, OR does s/he require medication for social in teraction? No. SOCIAL INTERACTION - SCORE: 7-IND PROBLEM SOLVING: PROBLEM SOLVING - STEP 1: Does the patient need help from a person or device, or need extra time to solve complex problems such as managing a checking account or confronting interpersonal problems? No. PROBLEM SOLVING - STEP 2: Does the patient require extra time to make decisions or solve problems, OR does s/he have slight dif ficulty reading, initiating, or self-correcting in unfamiliar situations? No. PROBLEM SOLVING - SCORE: 7-IND MEMORY: MEMORY - STEP 1: Does the patient need help from a person or device, or need extra time to remember frequently encount ered people, daily routines, and executing requests? No. MEMORY - STEP 2: Does the patient have slight difficulty recognizing frequently encountered people, daily routines, or executing requests without the need for repetition or using self-initiated or environmental cues to remember? No. MEMORY - SCORE: 7-IND SIGNATURE PANEL: The following modified sections: Eating - Score, Grooming - Score, Bathing - Score, Dressing - Upper Body - Score, Dressing - Lower Body - Score, Toileting - Score, Bladder Management - Score, Bowel Man agement - Score, Transfers: Bed, Chair, Wheelchair - Score, Transfers: Toilet - Score, Transfers: Patria wer - Score, Transfers: Tub - Score, Locomotion: Walk - Score, Locomotion: Wheelchair - Score, Compre hension - Score, Expression - Score, Social Interaction - Score, Problem Solving - Score, Memory - Sc ore were [electronically] signed by Bhupendra Heard on MonFeb 11 2019 14:28:00 GMT-0500 (Central Daylight Time)
--- NOTE | 2019-02-11 14:53 | FAST ---
ENCOUNTER DATE AND TIME: 02/11/2019 08:00 (CDT) NAME GERSON CLARK DATE OF : 1970 DATE OF ADMISSION: 02/09/2019 09:34 (CDT) PHONE: AGE: 48 SSN# [id number] GENDER: Female ENCOUNTER PHYSICIAN: Dr. Ric Wild M.D. ADMISSION DIAGNOSIS: - Orthopaedic Disorders 08 - Unilateral Hip Fracture (08.11) Left Femur Fracture. EATING: EATING - STEP 1: Does the patient require the assistance of a person or device, or need extra time when eating? No. EATING - SCORE: 7-IND GROOMING: Comb/brush hair Oral care Wash, rinse, and dry face Wash, rinse, and dry hands GROOMING - STEP 1: Does the patient require the assistance of a person or device, or need extra time when grooming? No. GROOMING - SCORE: 7-IND BATHING: Abdomen Buttocks Chest Left arm Left lower leg and foot Left upper leg Perineal area Right arm Right lower leg and foot Right upper leg BATHING - STEP 1: Does the patient require the assistance of a person or device, or need extra time when bathing? Yes. BATHING - STEP 2: Does the patient require the assistance of a helper? No. The patient only requires an assistive devic e such as a bath zandra, OR the patient takes more than reasonable time to bathe, OR there is a concern for safety such as regulating water temperature as the patient bathes. BATHING - SCORE: 6-LUCAS DRESSING - UPPER BODY: Bra (three steps) T-shirt/pullover shirt (four steps) ARTICLES SCORE Total number of steps: 7 DRESSING - UPPER BODY - STEP 1: Does the patient require help from a person or device, or need extra time when dressing above the [address]? No. DRESSING - UPPER BODY - SCORE: 7-IND DRESSING - LOWER BODY: Elastic waist pants (three steps) Sock - Left foot (one step) Sock - Right foot (one step) Tied or buckled shoe - Right foot (two steps) Underwear (three steps) ARTICLES SCORE Total number of steps: 10 DRESSING - LOWER BODY - STEP 1: Does the patient require help from a person or device, or need extra time when dressing below the [address]? Yes. DRESSING - LOWER BODY - STEP 2: Does the patient require the assistance of a helper? Yes. DRESSING - LOWER BODY - STEP 3: Does the helper touch the patient while dressing? No. DRESSING - LOWER BODY - SCORE: 5-SUP TOILETING: TOILETING - STEP 1: Does the patient require the assistance of a person or device, or need extra time with toileting? Yes . TOILETING - STEP 2: Does the patient require the assistance of a helper? No. TOILETING - SCORE: 6-LUCAS BLADDER MANAGEMENT: Activity did not occur on this shift BLADDER MANAGEMENT - SCORE: 7-IND BOWEL MANAGEMENT: Activity did not occur on this shift BOWEL MANAGEMENT - SCORE: 7-IND TRANSFERS: BED, CHAIR, WHEELCHAIR: Activity did not occur on this shift TRANSFERS: BED, CHAIR, WHEELCHAIR - SCORE: 0-UNK TRANSFERS: TOILET: TRANSFERS: TOILET - STEP 1: Does the patient require the assistance of a person or device, or need extra time with toilet transfe rs? Yes. TRANSFERS: TOILET - STEP 2: Does the patient require the assistance of a helper? No. Patient only requires an assistive device dacosta ch as a grab bar or special seat, OR s/he takes more than reasonable time to perform toilet transfers , OR there is a safety concern when s/he performs toilet transfers. TRANSFERS: TOILET - SCORE: 6-LUCAS TRANSFERS: SHOWER: TRANSFERS: SHOWER - STEP 1: Does the patient require the assistance of a person or device, or need extra time with shower transfe rs? Yes. TRANSFERS: SHOWER - STEP 2: Does the patient require the assistance of a helper? No. The patient only uses an assistive device, t akes more than reasonable time, OR there is a concern for safety when s/he performs transfers. TRANSFERS: SHOWER - SCORE: 6-LUCAS TRANSFERS: TUB: Activity did not occur on this shift TRANSFERS: TUB - SCORE: 0-UNK LOCOMOTION: WALK: Activity did not occur on this shift LOCOMOTION: WALK - SCORE: 0-UNK LOCOMOTION: WHEELCHAIR: Activity did not occur on this shift LOCOMOTION: WHEELCHAIR - SCORE: 0-UNK LOCOMOTION: STAIRS: Activity did not occur on this shift LOCOMOTION: STAIRS - SCORE: 0-UNK COMPREHENSION: COMPREHENSION: TYPE: Both COMPREHENSION - STEP 1: Does the patient require help from a person or device, or need extra time to understand complex and a bstract ideas (such as current events, finances, discharge planning, medical issues, relationships, e tc)? No. COMPREHENSION - STEP 2: Does the patient need extra time, require an assistive device (such as glasses for visual comprehensi on or a hearing aid for auditory comprehension) or does s/he have mild difficulty understanding compl ex and abstract information? No. COMPREHENSION - SCORE: 7-IND EXPRESSION EXPRESSION: TYPE: Both EXPRESSION - STEP 1: Does the patient require help from a person or device, or need extra time expressing complex and abst ract ideas (such as current events, finances, discharge planning, medical issues, relationships, etc) ? No. EXPRESSION - STEP 2: Does the patient need extra time, require an assistive device (such as augmentive communication syste m or a communication board), OR does s/he have mild difficulty expressing complex and abstract ideas (including mild dysarthria or mild word-find problems)? No. EXPRESSION - SCORE: 7-IND SOCIAL INTERACTION: SOCIAL INTERACTION - STEP 1: Does the patient require a helper to interact with others in social and therapeutic situations? No. SOCIAL INTERACTION - STEP 2: Does the patient need extra time in social situations, OR does s/he interact with staff, other patien ts, and family members ONLY in structured environments, OR does s/he require medication for social in teraction? No. SOCIAL INTERACTION - SCORE: 7-IND PROBLEM SOLVING: PROBLEM SOLVING - STEP 1: Does the patient need help from a person or device, or need extra time to solve complex problems such as managing a checking account or confronting interpersonal problems? No. PROBLEM SOLVING - STEP 2: Does the patient require extra time to make decisions or solve problems, OR does s/he have slight dif ficulty reading, initiating, or self-correcting in unfamiliar situations? No. PROBLEM SOLVING - SCORE: 7-IND MEMORY: MEMORY - STEP 1: Does the patient need help from a person or device, or need extra time to remember frequently encount ered people, daily routines, and executing requests? No. MEMORY - STEP 2: Does the patient have slight difficulty recognizing frequently encountered people, daily routines, or executing requests without the need for repetition or using self-initiated or environmental cues to remember? No. MEMORY - SCORE: 7-IND SIGNATURE PANEL: The following modified sections: Eating - Score, Grooming - Score, Bathing - Score, Dressing - Upper Body - Score, Dressing - Lower Body - Score, Toileting - Score, Transfers: Bed, Chair, Wheelchair - S core, Transfers: Toilet - Score, Transfers: Tub - Score, Transfers: Shower - Score, Comprehension - S core, Expression - Score, Social Interaction - Score, Problem Solving - Score, Memory - Score were [e lectronically] signed by Lauren Stark OT on MonFeb 11 2019 14:52:33 T-0500 (Central Daylight T jeannette)
[2019-02-11] MEDS: ENOXAPARIN 40 MG/0.4 ML SQ SCH (16:10)
[2019-02-11] MEDS: CRANBERRY FRUIT EXTRACT 200 MG CAP PO SCH (20:12)
[2019-02-11] MEDS: BACLOFEN 10 MG TAB PO PRN (20:12)
[2019-02-11] MEDS: DOCUSATE NA/SENNA CONC 1 TAB PO SCH (20:13)
--- NOTE | 2019-02-12 02:44 | FAST ---
SHIFT START DATE/TIME: 02/11/2019 19:00 (CDT) SHIFT END DATE/TIME: 02/12/2019 07:00 (CDT) NAME GERSON CLARK DATE OF : 1970 DATE OF ADMISSION: 02/09/2019 09:34 (CDT) PHONE: AGE: 48 N# [id number] GENDER: Female ENCOUNTER PHYSICIAN: Dr. Ric Wild M.D. ADMISSION DIAGNOSIS: - Orthopaedic Disorders 08 - Unilateral Hip Fracture (08.11) Left Femur Fracture. EATING: Activity did not occur on this shift EATING - SCORE: 0-UNK GROOMING: Oral care Wash, rinse, and dry hands GROOMING - STEP 1: Does the patient require the assistance of a person or device, or need extra time when grooming? No. GROOMING - SCORE: 7-IND BATHING: Activity did not occur on this shift BATHING - SCORE: 0-UNK DRESSING - UPPER BODY: Patient is not dressing in public clothing ARTICLES SCORE Total number of steps: 0 DRESSING - UPPER BODY - SCORE: 0-UNK DRESSING - LOWER BODY: Patient is not dressing in public clothing ARTICLES SCORE Total number of steps: 0 DRESSING - LOWER BODY - SCORE: 0-UNK TOILETING: TOILETING - STEP 1: Does the patient require the assistance of a person or device, or need extra time with toileting? Yes . TOILETING - STEP 2: Does the patient require the assistance of a helper? Yes. TOILETING - STEP 3: How much assistance does the patient require from the helper? Only supervision TOILETING - SCORE: 5-SUP BLADDER MANAGEMENT: BLADDER MANAGEMENT - STEP 1: Does the patient control the bladder completely and intentionally without equipment or devices or med ications, and is always continent? Yes. BLADDER MANAGEMENT - SCORE: 7-IND BOWEL MANAGEMENT: Activity did not occur on this shift BOWEL MANAGEMENT - SCORE: 7-IND TRANSFERS: BED, CHAIR, WHEELCHAIR: TRANSFERS: BED, CHAIR, WHEELCHAIR - STEP 1: Does the patient require assistance of a person or device, or need extra time with bed, chair, or whe elchair transfers? Yes. TRANSFERS: BED, CHAIR, WHEELCHAIR - STEP 2: Does the patient require the assistance of a helper? Yes. TRANSFERS: BED, CHAIR, WHEELCHAIR - STEP 3: How much assistance does the patient require from the helper? Only supervision TRANSFERS: BED, CHAIR, WHEELCHAIR - SCORE: 5-SUP TRANSFERS: TOILET: TRANSFERS: TOILET - STEP 1: Does the patient require the assistance of a person or device, or need extra time with toilet transfe rs? Yes. TRANSFERS: TOILET - STEP 2: Does the patient require the assistance of a helper? Yes. TRANSFERS: TOILET - STEP 3: How much assistance does the patient require from the helper? Only supervision, cuing, coaxing, OR he lp to set out transfer equipment or to lock brakes and/or lift foot rests TRANSFERS: TOILET - SCORE: 5-SUP TRANSFERS: SHOWER: Activity did not occur on this shift TRANSFERS: SHOWER - SCORE: 0-UNK TRANSFERS: TUB: Activity did not occur on this shift TRANSFERS: TUB - SCORE: 0-UNK LOCOMOTION: WALK: Activity did not occur on this shift LOCOMOTION: WALK - SCORE: 0-UNK LOCOMOTION: WHEELCHAIR: Activity did not occur on this shift LOCOMOTION: WHEELCHAIR - SCORE: 0-UNK COMPREHENSION: COMPREHENSION: TYPE: Both COMPREHENSION - STEP 1: Does the patient require help from a person or device, or need extra time to understand complex and a bstract ideas (such as current events, finances, discharge planning, medical issues, relationships, e tc)? No. COMPREHENSION - STEP 2: Does the patient need extra time, require an assistive device (such as glasses for visual comprehensi on or a hearing aid for auditory comprehension) or does s/he have mild difficulty understanding compl ex and abstract information? No. COMPREHENSION - SCORE: 7-IND EXPRESSION EXPRESSION: TYPE: Both EXPRESSION - STEP 1: Does the patient require help from a person or device, or need extra time expressing complex and abst ract ideas (such as current events, finances, discharge planning, medical issues, relationships, etc) ? No. EXPRESSION - STEP 2: Does the patient need extra time, require an assistive device (such as augmentive communication syste m or a communication board), OR does s/he have mild difficulty expressing complex and abstract ideas (including mild dysarthria or mild word-find problems)? No. EXPRESSION - SCORE: 7-IND SOCIAL INTERACTION: SOCIAL INTERACTION - STEP 1: Does the patient require a helper to interact with others in social and therapeutic situations? No. SOCIAL INTERACTION - STEP 2: Does the patient need extra time in social situations, OR does s/he interact with staff, other patien ts, and family members ONLY in structured environments, OR does s/he require medication for social in teraction? No. SOCIAL INTERACTION - SCORE: 7-IND PROBLEM SOLVING: PROBLEM SOLVING - STEP 1: Does the patient need help from a person or device, or need extra time to solve complex problems such as managing a checking account or confronting interpersonal problems? No. PROBLEM SOLVING - STEP 2: Does the patient require extra time to make decisions or solve problems, OR does s/he have slight dif ficulty reading, initiating, or self-correcting in unfamiliar situations? No. PROBLEM SOLVING - SCORE: 7-IND MEMORY: MEMORY - STEP 1: Does the patient need help from a person or device, or need extra time to remember frequently encount ered people, daily routines, and executing requests? No. MEMORY - STEP 2: Does the patient have slight difficulty recognizing frequently encountered people, daily routines, or executing requests without the need for repetition or using self-initiated or environmental cues to remember? No. MEMORY - SCORE: 7-IND SIGNATURE PANEL: The following modified sections: Eating - Score, Grooming - Score, Bathing - Score, Dressing - Upper Body - Score, Dressing - Lower Body - Score, Toileting - Score, Bladder Management - Score, Bowel Man agement - Score, Transfers: Bed, Chair, Wheelchair - Score, Transfers: Toilet - Score, Transfers: Patria wer - Score, Transfers: Tub - Score, Locomotion: Walk - Score, Locomotion: Wheelchair - Score, Compre hension - Score, Expression - Score, Social Interaction - Score, Problem Solving - Score, Memory - Sc ore were [electronically] signed by Sandy Nicole CNA on MonFeb 12 2019 02:43:23 T-0500 ([place] Da ylight Time)
[2019-02-12] MEDS: MAGNESIUM OXIDE 400 MG TAB PO SCH ×2 (08:28→20:12)
[2019-02-12] MEDS: CRANBERRY FRUIT EXTRACT 200 MG CAP PO SCH ×2 (08:28→20:12)
[2019-02-12] MEDS: GABAPENTIN 300 MG CAP PO SCH ×2 (08:28→20:12)
[2019-02-12] MEDS ORDERED: ACETAMINOPHEN 500 MG TAB PO PRN (09:29)
--- NOTE | 2019-02-12 14:21 | FAST ---
ENCOUNTER DATE AND TIME: 02/12/2019 08:00 (CDT) NAME GERSON CLARK DATE OF : 1970 DATE OF ADMISSION: 02/09/2019 09:34 (CDT) PHONE: AGE: 48 SSN# [id number] GENDER: Female ENCOUNTER PHYSICIAN: Dr. Ric Wild M.D. ADMISSION DIAGNOSIS: - Orthopaedic Disorders 08 - Unilateral Hip Fracture (08.11) Left Femur Fracture. EATING: Activity did not occur on this shift EATING - SCORE: 0-UNK GROOMING: Activity did not occur on this shift GROOMING - SCORE: 0-UNK BATHING: Activity did not occur on this shift BATHING - SCORE: 0-UNK DRESSING - UPPER BODY: Activity did not occur on this shift Patient is not dressing in public clothing ARTICLES SCORE Total number of steps: 0 DRESSING - UPPER BODY - SCORE: 0-UNK DRESSING - LOWER BODY: Activity did not occur on this shift Patient is not dressing in public clothing ARTICLES SCORE Total number of steps: 0 DRESSING - LOWER BODY - SCORE: 0-UNK TOILETING: Activity did not occur on this shift TOILETING - SCORE: 0-UNK BLADDER MANAGEMENT: Activity did not occur on this shift BLADDER MANAGEMENT - SCORE: 7-IND BOWEL MANAGEMENT: Activity did not occur on this shift BOWEL MANAGEMENT - SCORE: 7-IND TRANSFERS: BED, CHAIR, WHEELCHAIR: TRANSFERS: BED, CHAIR, WHEELCHAIR - STEP 1: Does the patient require assistance of a person or device, or need extra time with bed, chair, or whe elchair transfers? Yes. TRANSFERS: BED, CHAIR, WHEELCHAIR - STEP 2: Does the patient require the assistance of a helper? No. Patient only requires an assistive device fo r bed, chair, wheelchair transfers such as a sliding board, grab bar, or brace, OR s/he takes more th an reasonable time, OR there is a safety concern when s/he performs the transfers TRANSFERS: BED, CHAIR, WHEELCHAIR - SCORE: 6-LUCAS TRANSFERS: TOILET: TRANSFERS: TOILET - STEP 1: Does the patient require the assistance of a person or device, or need extra time with toilet transfe rs? Yes. TRANSFERS: TOILET - STEP 2: Does the patient require the assistance of a helper? No. Patient only requires an assistive device dacosta ch as a grab bar or special seat, OR s/he takes more than reasonable time to perform toilet transfers , OR there is a safety concern when s/he performs toilet transfers. TRANSFERS: TOILET - SCORE: 6-LUCAS TRANSFERS: SHOWER: Activity did not occur on this shift TRANSFERS: SHOWER - SCORE: 0-UNK TRANSFERS: TUB: Activity did not occur on this shift TRANSFERS: TUB - SCORE: 0-UNK LOCOMOTION: WALK: LOCOMOTION: WALK - STEP 1: Does the patient need help from a person or device, or need extra time to walk 150 feet? No. LOCOMOTION: WALK - STEP 2: Does the patient need an assistive device (such as an orthosis, prosthesis, crutches, or walker) to g o 150 feet, OR does s/he take more than reasonable time, OR is there a concern for safety? Yes, the p atient needs an assistive device LOCOMOTION: WALK - SCORE: 6-LUCAS LOCOMOTION: WHEELCHAIR: LOCOMOTION: WHEELCHAIR - STEP 1: Does the patient need help to go 150 feet in a wheelchair? No. LOCOMOTION: WHEELCHAIR - SCORE: 6-LUCAS LOCOMOTION: STAIRS: Activity did not occur on this shift LOCOMOTION: STAIRS - SCORE: 0-UNK COMPREHENSION: COMPREHENSION - SCORE: 0-UNK EXPRESSION EXPRESSION - SCORE: 0-UNK SOCIAL INTERACTION: SOCIAL INTERACTION - SCORE: 0-UNK PROBLEM SOLVING: PROBLEM SOLVING - SCORE: 0-UNK MEMORY: MEMORY - SCORE: 0-UNK SIGNATURE PANEL: The following modified sections: Transfers: Bed, Chair, Wheelchair - Score, Transfers: Toilet - Score , Locomotion: Walk - Score, Locomotion: Wheelchair - Score, Locomotion: Stairs - Score were [ej wilkins] signed by Nereida Noble PTA on MonFeb 12 2019 14:21:18 GMT-0500 (Central Daylight Time)
[2019-02-12] MEDS: TRAMADOL HCL 50 MG TAB PO PRN ×2 (15:00→20:12)
[2019-02-12] MEDS: ENOXAPARIN 40 MG/0.4 ML SQ SCH (16:36)
--- NOTE | 2019-02-12 18:32 | R.PN ---
ENCOUNTER DATE AND TIME: 02/12/2019 18:29 (CDT) NAME GERSON CLARK DATE OF : 1970 DATE OF ADMISSION: 02/09/2019 09:34 (CDT) Left Femur FractureCHIEF COMPLAINT: Left hip fracture. SUBJECTIVE: Pt denied any depression. Pt denied any Shortness of Breath. Ambulated 1000' with modified independence using bilateral crutches. VITAL SIGNS Temperature: 98.4 F SBP/DBP: 129/64 Pulse: 82 Resp: 16 MEDICATION ALLERGIES: Sulfa ENVIRONMENTAL ALLERGIES: None Known - Substance Allergies None Known - Other Allergies None Known NURSING: - Shower allowing shower - Skin care per protocol PRECAUTIONS: - Posterior Hip Precaution No adduction across midline No external rotation No hip flexion >90 degrees No internal rotation No wheel chair propulsion - Weight Bearing Precaution TTWB left LE ACTIVITIES OOB only with supervision THERAPIES: - Occupational Therapy Evaluate and Treat. - Physical Therapy Evaluate and Treat. PHYSICAL EXAM - Gen Alert and awake Lying in bed No apparent distress Oriented to: person, time, and place - Skin No breakdown No abnormalities - Eyes No abnormalities - ENMT No abnormalities - Neck No abnormalities - CVS RRR - Chest Clear - Abd +bowel sounds - GI nondistended Deferred - No abnormalities - Ext Mild left lower extremity edema. - MSK 4+/5 weakness in left lower extremity - Neuro 4/5 strength left lower extremity. - Psych No abnormalities ASSESSMENT: Pt. is a 48 yo Right-handed white female.On 02/05/2019 she was admitted to [facility] with diagnosis Left Femur Fracture.Her impairment category is Orthopaedic Disorders 08 - Unil ateral Hip Fracture (08.11).Pre-morbidly, Pt. was independent/mod-I in Self-Care, Sphincter Control, Transfers Control, Locomotion, Communication, and Social Cognition; and she had good Sphincter Contro l.Currently, she has deficits of Transfers Control, Locomotion, Endurance, Balance, Safety Awareness, and Self-Care.Pt. is now referred to [facility] for acute in-patient rehabili tation in order to maximize patient's functional independence in activities of daily living, strength , ROM, and mobility.- Rehab Goal Patient has realistic goal of being discharged at assistance level 6-Yulisa to reside at Home with Fam cara/Relatives. MDM/PLAN: - Physical Therapy Decreased range of motion - to improve, our physical therapists will perform initial evaluation of p t's status upon admission and devise an individualized program for increasing patient's Range of Peng on. Gait dysfunction - to improve, our physical therapists will perform initial evaluation of pt's statu s upon admission and devise an individualized program for Gait Training, and Wheel Chair mobility Inability to transfer - to improve, our physical therapists will perform initial evaluation of pt's status upon admission and devise an individualized program for Bed mobility Need for home safety evaluation - to improve, our physical therapists will perform initial evaluatio n of pt's status upon admission and devise an individualized program for Home Evaluation Need in caregiver upon discharge - to improve, our physical therapists will perform initial evaluati on of pt's status upon admission and devise an individualized program for Caregiver Training New precaution - to improve, our physical therapists will perform initial evaluation of pt's status upon admission and devise an individualized program for Patient precaution education Edema - to improve, our physical therapists will perform initial evaluation of pt's status upon admis shelley and devise an individualized program for Elevation Training, and Lymphedema Therapy Poor balance - to improve, our physical therapists will perform initial evaluation of pt's status up on admission and devise an individualized program for Balance Training Poor endurance - to improve, our physical therapists will perform initial evaluation of pt's status upon admission and devise an individualized program for Endurance Training Weakness - to improve, our physical therapists will perform initial evaluation of pt's status upon a dmission and devise an individualized program for Aquatic Therapy, Neuromuscular Reeducation, and Str engthening Achieving independence - to improve, our physical therapists will perform initial evaluation of pt's status upon admission and devise an individualized program for Community Reintegration Activities - Occupational Therapy ADL deficits - to improve, our occupation therapists will perform initial evaluation of pt's status upon admission and devise an individualized program for Bathing, Bed mobility, Community Reintegratio n, Cooking, Dressing, Eating, Fine Motor Skills, Grooming, Homemaking, Kitchen Mobility, Laundry, Pat ient Education, Safety Awareness, Splinting - Positioning, Transfers(Toilet, Tub, Shower), and Wheel Chair Management Need for career services officer - to improve, our occupation therapists will perform initial evaluation of pt's status upon admission and devise an individualized program for Caregiver Training Weakness - to improve, our occupation therapists will perform initial evaluation of pt's status upon admission and devise an individualized program for Aquatic Therapy, Balance, Endurance, UE ROM, and UE strengthening - Anterior Hip Precaution No abduction No active extension No adduction across midline No external rotation No hip flexion >90 degrees No internal rotation - Diet - Liquid Texture Continue Regular - Tube Feed Continue N/A - Diet Type Continue Regular - Posterior Hip Precaution No adduction across midline No external rotation No hip flexion >90 degrees No internal rotation No wheel chair propulsion - Weight Bearing Precaution TTWB left LE - Skin care per protocol - Diet - Solid Texture Continue Regular - Shower allowing shower FUNCTIONAL STATUS: UPDATED AT WEEKLY TEAM CONFERENCE - Bladder Same accident frequency: 7-Ind - No accidents in the past 7 days - Bowel Same accident frequency: 7-Ind - No accidents in the past 7 days - Walking Same score based on distance walked: 2(50-149ft) - Wheelchair Same score based on distance traveled: 0(N/A) FUNCTIONAL STATUS: - Self-Care A. Eating Ind B. Grooming Ind C. Bathing sup D. Dressing - Upper Ind E. Dressing - Lower Christophe F. Toileting Christophe - Sphincter Control G: Bladder control Ind H: Bowel control Ind - Transfers Control I. Bed/Chair/Wheelchair Christophe J. Toilet Christophe K. Tub/Shower ADNO - Locomotion L. Walk/Wheelchair (C) CGA L. Walk/Wheelchair (W) CGA M. Stairs ADNO - Communication N. Comprehension (B) Ind O. Expression (B) Ind - Social Cognition P. Social Interaction Ind Q. Problem Solving Ind R. Memory Ind - Endurance Fair - Balance Fair - Safety Awareness Fair CURRENT FUNC. DEFICITS: Transfers Control, Locomotion, Endurance, Balance, Safety Awareness, and Self-Care SIGNATURE PANEL: (CDT)
[2019-02-12] MEDS: DOCUSATE NA/SENNA CONC 1 TAB PO SCH (20:13)
[2019-02-12] MEDS: BACLOFEN 10 MG TAB PO PRN (20:15)
[2019-02-13] MEDS: CRANBERRY FRUIT EXTRACT 200 MG CAP PO SCH ×2 (08:20→20:36)
[2019-02-13] MEDS: MAGNESIUM OXIDE 400 MG TAB PO SCH ×2 (08:20→20:36)
[2019-02-13] MEDS: GABAPENTIN 300 MG CAP PO SCH ×2 (08:20→20:36)
--- NOTE | 2019-02-13 11:30 | FAST ---
ENCOUNTER DATE AND TIME: 02/13/2019 08:00 (CDT) NAME GERSON CLARK DATE OF : 1970 DATE OF ADMISSION: 02/08/2019 16:01 (CDT) PHONE: AGE: 48 SSN# [id number] GENDER: Female ENCOUNTER PHYSICIAN: Dr. Ric Wild M.D. ADMISSION DIAGNOSIS: - Orthopaedic Disorders 08 - Unilateral Hip Fracture (08.11) Left Femur Fracture. EATING: EATING - STEP 1: Does the patient require the assistance of a person or device, or need extra time when eating? No. EATING - SCORE: 7-IND GROOMING: Comb/brush hair Oral care Wash, rinse, and dry face Wash, rinse, and dry hands GROOMING - STEP 1: Does the patient require the assistance of a person or device, or need extra time when grooming? No. GROOMING - SCORE: 7-IND BATHING: Abdomen Buttocks Chest Left arm Left lower leg and foot Left upper leg Perineal area Right arm Right lower leg and foot Right upper leg BATHING - STEP 1: Does the patient require the assistance of a person or device, or need extra time when bathing? Yes. BATHING - STEP 2: Does the patient require the assistance of a helper? No. The patient only requires an assistive devic e such as a bath zandra, OR the patient takes more than reasonable time to bathe, OR there is a concern for safety such as regulating water temperature as the patient bathes. BATHING - SCORE: 6-LUCAS DRESSING - UPPER BODY: Bra (three steps) T-shirt/pullover shirt (four steps) ARTICLES SCORE Total number of steps: 7 DRESSING - UPPER BODY - STEP 1: Does the patient require help from a person or device, or need extra time when dressing above the [address]? No. DRESSING - UPPER BODY - SCORE: 7-IND DRESSING - LOWER BODY: Elastic waist pants (three steps) Sock - Left foot (one step) Sock - Right foot (one step) Tied or buckled shoe - Right foot (two steps) Underwear (three steps) ARTICLES SCORE Total number of steps: 10 DRESSING - LOWER BODY - STEP 1: Does the patient require help from a person or device, or need extra time when dressing below the [address]? Yes. DRESSING - LOWER BODY - STEP 2: Does the patient require the assistance of a helper? No. Patient requires an assistive device such as a xray tech. OR s/he takes more than reasonable time as s/he dresses the lower body, OR there is a con cern for safety when s/he dresses the lower body DRESSING - LOWER BODY - SCORE: 6-LUCAS TOILETING: TOILETING - STEP 1: Does the patient require the assistance of a person or device, or need extra time with toileting? Yes . TOILETING - STEP 2: Does the patient require the assistance of a helper? No. TOILETING - SCORE: 6-LUCAS BLADDER MANAGEMENT: Activity did not occur on this shift BLADDER MANAGEMENT - SCORE: 7-IND BOWEL MANAGEMENT: Activity did not occur on this shift BOWEL MANAGEMENT - SCORE: 7-IND TRANSFERS: BED, CHAIR, WHEELCHAIR: TRANSFERS: BED, CHAIR, WHEELCHAIR - STEP 1: Does the patient require assistance of a person or device, or need extra time with bed, chair, or whe elchair transfers? Yes. TRANSFERS: BED, CHAIR, WHEELCHAIR - STEP 2: Does the patient require the assistance of a helper? No. Patient only requires an assistive device fo r bed, chair, wheelchair transfers such as a sliding board, grab bar, or brace, OR s/he takes more th an reasonable time, OR there is a safety concern when s/he performs the transfers TRANSFERS: BED, CHAIR, WHEELCHAIR - SCORE: 6-LUCAS TRANSFERS: TOILET: TRANSFERS: TOILET - STEP 1: Does the patient require the assistance of a person or device, or need extra time with toilet transfe rs? Yes. TRANSFERS: TOILET - STEP 2: Does the patient require the assistance of a helper? No. Patient only requires an assistive device dacosta ch as a grab bar or special seat, OR s/he takes more than reasonable time to perform toilet transfers , OR there is a safety concern when s/he performs toilet transfers. TRANSFERS: TOILET - SCORE: 6-LUCAS TRANSFERS: SHOWER: TRANSFERS: SHOWER - STEP 1: Does the patient require the assistance of a person or device, or need extra time with shower transfe rs? Yes. TRANSFERS: SHOWER - STEP 2: Does the patient require the assistance of a helper? No. The patient only uses an assistive device, t akes more than reasonable time, OR there is a concern for safety when s/he performs transfers. TRANSFERS: SHOWER - SCORE: 6-LUCAS TRANSFERS: TUB: Activity did not occur on this shift TRANSFERS: TUB - SCORE: 0-UNK LOCOMOTION: WALK: Activity did not occur on this shift LOCOMOTION: WALK - SCORE: 0-UNK LOCOMOTION: WHEELCHAIR: Activity did not occur on this shift LOCOMOTION: WHEELCHAIR - SCORE: 0-UNK LOCOMOTION: STAIRS: Activity did not occur on this shift LOCOMOTION: STAIRS - SCORE: 0-UNK COMPREHENSION: COMPREHENSION: TYPE: Both COMPREHENSION - STEP 1: Does the patient require help from a person or device, or need extra time to understand complex and a bstract ideas (such as current events, finances, discharge planning, medical issues, relationships, e tc)? No. COMPREHENSION - STEP 2: Does the patient need extra time, require an assistive device (such as glasses for visual comprehensi on or a hearing aid for auditory comprehension) or does s/he have mild difficulty understanding compl ex and abstract information? No. COMPREHENSION - SCORE: 7-IND EXPRESSION EXPRESSION: TYPE: Both EXPRESSION - STEP 1: Does the patient require help from a person or device, or need extra time expressing complex and abst ract ideas (such as current events, finances, discharge planning, medical issues, relationships, etc) ? No. EXPRESSION - STEP 2: Does the patient need extra time, require an assistive device (such as augmentive communication syste m or a communication board), OR does s/he have mild difficulty expressing complex and abstract ideas (including mild dysarthria or mild word-find problems)? No. EXPRESSION - SCORE: 7-IND SOCIAL INTERACTION: SOCIAL INTERACTION - STEP 1: Does the patient require a helper to interact with others in social and therapeutic situations? No. SOCIAL INTERACTION - STEP 2: Does the patient need extra time in social situations, OR does s/he interact with staff, other patien ts, and family members ONLY in structured environments, OR does s/he require medication for social in teraction? No. SOCIAL INTERACTION - SCORE: 7-IND PROBLEM SOLVING: PROBLEM SOLVING - STEP 1: Does the patient need help from a person or device, or need extra time to solve complex problems such as managing a checking account or confronting interpersonal problems? No. PROBLEM SOLVING - STEP 2: Does the patient require extra time to make decisions or solve problems, OR does s/he have slight dif ficulty reading, initiating, or self-correcting in unfamiliar situations? No. PROBLEM SOLVING - SCORE: 7-IND MEMORY: MEMORY - STEP 1: Does the patient need help from a person or device, or need extra time to remember frequently encount ered people, daily routines, and executing requests? No. MEMORY - STEP 2: Does the patient have slight difficulty recognizing frequently encountered people, daily routines, or executing requests without the need for repetition or using self-initiated or environmental cues to remember? No. MEMORY - SCORE: 7-IND SIGNATURE PANEL: The following modified sections: Memory - Score, Problem Solving - Score, Social Interaction - Score, Expression - Score, Comprehension - Score, Transfers: Bed, Chair, Wheelchair - Score, Transfers: Jameson let - Score, Transfers: Tub - Score, Transfers: Shower - Score, Eating - Score, Grooming - Score, Bat kayla - Score, Dressing - Upper Body - Score, Dressing - Lower Body - Score, Toileting - Score were [e lectronically] signed by Lauren Stark OT on MonFeb 13 2019 11:29:46 T-0500 ([facility] Day[facility] T jeannette)
[2019-02-13] MEDS: TRAMADOL HCL 50 MG TAB PO PRN (15:31)
[2019-02-13] MEDS: ENOXAPARIN 40 MG/0.4 ML SQ SCH (16:23)
[2019-02-13] MEDS: DOCUSATE NA/SENNA CONC 1 TAB PO SCH (20:37)
[2019-02-13] MEDS: BACLOFEN 10 MG TAB PO PRN (22:17)
[2019-02-14] MEDS: TRAMADOL HCL 50 MG TAB PO PRN ×3 (06:04→18:34)
[2019-02-14 06:55] LABS: Absolute Lymphocytes (CBC) 1.4 K/uL (0.7-4.9); Absolute Monocytes 0.8 K/uL (0.1-1.3); Eosinophils % 3.2 % (0-4.4); Hematocrit 34.7 % (36.0-45.0); MPV 7.7 fL (7.6-11.3); Monocytes % 12.4 % (3.3-12.3); RBC Red Blood Cell Count 3.83 M/uL (3.86-4.86)
[2019-02-14 07:38] LABS: Albumin 3.4 g/dL (3.4-5.0); BUN Blood Urea Nitrogen 10 mg/dL (7-18); Bicarbonate 30 mmol/L (21-32); Glucose Level 99 mg/dL (74-106); Magnesium 2.6 mg/dL (1.8-2.4); Potassium 4.3 mmol/L (3.5-5.1); Prealbumin 15.4 mg/dL (20-40); Sodium Level 142 mmol/L (136-145)
[2019-02-14] MEDS: MAGNESIUM OXIDE 400 MG TAB PO SCH ×2 (08:18→19:18)
[2019-02-14] MEDS: GABAPENTIN 300 MG CAP PO SCH ×2 (08:18→19:18)
[2019-02-14] MEDS: CRANBERRY FRUIT EXTRACT 200 MG CAP PO SCH ×2 (08:18→19:19)
[2019-02-14] MEDS ORDERED: ONDANSETRON 4 MG/2 ML VIAL IV PRN (12:52)
[2019-02-14] MEDS ORDERED: MORPHINE 4 MG/ML SYR IV PRN (12:52)
--- NOTE | 2019-02-14 13:01 | RAD REPORT ---
EXAM DESCRIPTION: RAD - Hip Right 2 View - 02/14/2019 12:52 pm CLINICAL HISTORY: S/P fall Fall, hip pain COMPARISON: No comparisons FINDINGS: Moderately severe osteoarthritis involves the right hip. No acute fracture or dislocation. IMPRESSION: Moderate osteoarthritis.
--- NOTE | 2019-02-14 13:02 | RAD REPORT ---
EXAM DESCRIPTION: RAD - Hip Left 2 View - 02/14/2019 12:50 pm CLINICAL HISTORY: S/P fall Fall, left hip pain COMPARISON: Hip Left 2 View dated 02/05/2019 FINDINGS: Three dynamic screws are present in the proximal left femur are spanning the and impacted subcapital fracture of the proximal left femur. In addition, there is a new spiral fracture seen in t he sub trochanteric region the proximal left femur. IMPRESSION: New spiral type fracture in the subtrochanteric and proximal shaft of the left femur see n.
--- NOTE | 2019-02-14 13:15 | RAD REPORT ---
EXAM DESCRIPTION: CT - Head Brain Wo Cont - 02/14/2019 1:05 pm CLINICAL HISTORY: S/P Fall Fall, trauma, head injury COMPARISON: Sinus Wo Cont dated 09/12/2018 TECHNIQUE: All CT scans are performed using dose optimization technique as appropriate and may inclu de automated exposure control or mA/KV adjustment according to patient size. FINDINGS: No intracranial hemorrhage, hydrocephalus or extra-axial fluid collection.No areas of brai n edema or evidence of midline shift. The paranasal sinuses and mastoids are clear. The calvarium is intact. IMPRESSION: No acute intracranial abnormality.
[2019-02-14] MEDS ORDERED: HYDROMORPHONE HCL 1 MG/ML INJ IV PRN (13:32)
[2019-02-14] MEDS: HYDROMORPHONE HCL 1 MG/ML INJ IV PRN ×3 (16:01→20:50)
--- NOTE | 2019-02-14 16:16 | FAST ---
SHIFT START DATE/TIME: 02/13/2019 07:00 (CDT) SHIFT END DATE/TIME: 02/13/2019 19:00 (CDT) NAME GERSON CLARK DATE OF : 1970 DATE OF ADMISSION: 02/08/2019 16:01 (CDT) PHONE: AGE: 48 N# [id number] GENDER: Female ENCOUNTER PHYSICIAN: Dr. Ric Wild M.D. ADMISSION DIAGNOSIS: - Orthopaedic Disorders 08 - Unilateral Hip Fracture (08.11) Left Femur Fracture. EATING: EATING - STEP 1: Does the patient require the assistance of a person or device, or need extra time when eating? No. EATING - SCORE: 7-IND GROOMING: Comb/brush hair Oral care Wash, rinse, and dry face Wash, rinse, and dry hands GROOMING - STEP 1: Does the patient require the assistance of a person or device, or need extra time when grooming? No. GROOMING - SCORE: 7-IND BATHING: Activity did not occur on this shift BATHING - SCORE: 0-UNK DRESSING - UPPER BODY: Activity did not occur on this shift ARTICLES SCORE Total number of steps: 0 DRESSING - UPPER BODY - SCORE: 0-UNK DRESSING - LOWER BODY: Activity did not occur on this shift ARTICLES SCORE Total number of steps: 0 DRESSING - LOWER BODY - SCORE: 0-UNK TOILETING: TOILETING - STEP 1: Does the patient require the assistance of a person or device, or need extra time with toileting? Yes . TOILETING - STEP 2: Does the patient require the assistance of a helper? No. TOILETING - SCORE: 6-LUCAS BLADDER MANAGEMENT: BLADDER MANAGEMENT - STEP 1: Does the patient control the bladder completely and intentionally without equipment or devices or med ications, and is always continent? Yes. BLADDER MANAGEMENT - SCORE: 7-IND BLADDER MANAGEMENT - FREQUENCY OF ACCIDENTS: BLADDER MANAGEMENT(FA) - STEP 1: How many accidents has the patient had during the current shift? 0 BOWEL MANAGEMENT: BOWEL MANAGEMENT - STEP 1: Does the patient control bowels completely and intentionally without equipment devices or medications AND is always continent? Yes. BOWEL MANAGEMENT - SCORE: 7-IND BOWEL MANAGEMENT - FREQUENCY OF ACCIDENTS: BOWEL MANAGEMENT(FA) - STEP 1: How many accidents has the patient had during the current shift? 0 TRANSFERS: BED, CHAIR, WHEELCHAIR: TRANSFERS: BED, CHAIR, WHEELCHAIR - STEP 1: Does the patient require assistance of a person or device, or need extra time with bed, chair, or whe elchair transfers? Yes. TRANSFERS: BED, CHAIR, WHEELCHAIR - STEP 2: Does the patient require the assistance of a helper? No. Patient only requires an assistive device fo r bed, chair, wheelchair transfers such as a sliding board, grab bar, or brace, OR s/he takes more th an reasonable time, OR there is a safety concern when s/he performs the transfers TRANSFERS: BED, CHAIR, WHEELCHAIR - SCORE: 6-LUCAS TRANSFERS: BED, CHAIR, WHEELCHAIR - COMMENTS: Pt Lucas with w/c and crutches TRANSFERS: TOILET: TRANSFERS: TOILET - STEP 1: Does the patient require the assistance of a person or device, or need extra time with toilet transfe rs? Yes. TRANSFERS: TOILET - STEP 2: Does the patient require the assistance of a helper? No. Patient only requires an assistive device dacosta ch as a grab bar or special seat, OR s/he takes more than reasonable time to perform toilet transfers , OR there is a safety concern when s/he performs toilet transfers. TRANSFERS: TOILET - SCORE: 6-LUCAS TRANSFERS: SHOWER: Activity did not occur on this shift TRANSFERS: SHOWER - SCORE: 0-UNK TRANSFERS: TUB: Activity did not occur on this shift TRANSFERS: TUB - SCORE: 0-UNK LOCOMOTION: WALK: Activity did not occur on this shift LOCOMOTION: WALK - SCORE: 0-UNK LOCOMOTION: WHEELCHAIR: LOCOMOTION: WHEELCHAIR - STEP 1: Does the patient need help to go 150 feet in a wheelchair? No. LOCOMOTION: WHEELCHAIR - SCORE: 6-LUCAS COMPREHENSION: COMPREHENSION: TYPE: Both COMPREHENSION - STEP 1: Does the patient require help from a person or device, or need extra time to understand complex and a bstract ideas (such as current events, finances, discharge planning, medical issues, relationships, e tc)? No. COMPREHENSION - STEP 2: Does the patient need extra time, require an assistive device (such as glasses for visual comprehensi on or a hearing aid for auditory comprehension) or does s/he have mild difficulty understanding compl ex and abstract information? Yes. COMPREHENSION - SCORE: 6-LUCAS EXPRESSION EXPRESSION: TYPE: Both EXPRESSION - STEP 1: Does the patient require help from a person or device, or need extra time expressing complex and abst ract ideas (such as current events, finances, discharge planning, medical issues, relationships, etc) ? No. EXPRESSION - STEP 2: Does the patient need extra time, require an assistive device (such as augmentive communication syste m or a communication board), OR does s/he have mild difficulty expressing complex and abstract ideas (including mild dysarthria or mild word-find problems)? Yes. EXPRESSION - SCORE: 6-LUCAS SOCIAL INTERACTION: SOCIAL INTERACTION - STEP 1: Does the patient require a helper to interact with others in social and therapeutic situations? No. SOCIAL INTERACTION - STEP 2: Does the patient need extra time in social situations, OR does s/he interact with staff, other patien ts, and family members ONLY in structured environments, OR does s/he require medication for social in teraction? No. SOCIAL INTERACTION - SCORE: 7-IND PROBLEM SOLVING: PROBLEM SOLVING - STEP 1: Does the patient need help from a person or device, or need extra time to solve complex problems such as managing a checking account or confronting interpersonal problems? No. PROBLEM SOLVING - STEP 2: Does the patient require extra time to make decisions or solve problems, OR does s/he have slight dif ficulty reading, initiating, or self-correcting in unfamiliar situations? No. PROBLEM SOLVING - SCORE: 7-IND MEMORY: MEMORY - STEP 1: Does the patient need help from a person or device, or need extra time to remember frequently encount ered people, daily routines, and executing requests? No. MEMORY - STEP 2: Does the patient have slight difficulty recognizing frequently encountered people, daily routines, or executing requests without the need for repetition or using self-initiated or environmental cues to remember? No. MEMORY - SCORE: 7-IND SIGNATURE PANEL: The following modified sections: Eating - Score, Grooming - Score, Bathing - Score, Dressing - Upper Body - Score, Dressing - Lower Body - Score, Toileting - Score, Bladder Management - Score, Transfers : Bed, Chair, Wheelchair - Score, Transfers: Bed, Chair, Wheelchair - Comments:, Transfers: Toilet - Score, Transfers: Shower - Score, Transfers: Tub - Score, Locomotion: Walk - Score, Locomotion: Wheel chair - Score, Comprehension - Score, Expression - Score, Social Interaction - Score, Problem Solving - Score, Memory - Score, Bowel Management - Score were [electronically] signed by Carlos Quintana on MonFeb 14 2019 16:14:55 T-0500 (Central Daylight Time)
--- NOTE | 2019-02-14 16:22 | FAST ---
SHIFT START DATE/TIME: 02/14/2019 07:00 (CDT) SHIFT END DATE/TIME: 02/14/2019 19:00 (CDT) NAME GERSON CLARK DATE OF : 1970 DATE OF ADMISSION: 02/08/2019 16:01 (CDT) PHONE: AGE: 48 N# [id number] GENDER: Female ENCOUNTER PHYSICIAN: Dr. Ric Wild M.D. ADMISSION DIAGNOSIS: - Orthopaedic Disorders 08 - Unilateral Hip Fracture (08.11) Left Femur Fracture. EATING: EATING - STEP 1: Does the patient require the assistance of a person or device, or need extra time when eating? No. EATING - SCORE: 7-IND GROOMING: Comb/brush hair Oral care Patient applied make-up Wash, rinse, and dry face Wash, rinse, and dry hands GROOMING - STEP 1: Does the patient require the assistance of a person or device, or need extra time when grooming? No. GROOMING - SCORE: 7-IND BATHING: Activity did not occur on this shift BATHING - SCORE: 0-UNK DRESSING - UPPER BODY: Activity did not occur on this shift ARTICLES SCORE Total number of steps: 0 DRESSING - UPPER BODY - SCORE: 0-UNK DRESSING - LOWER BODY: Activity did not occur on this shift ARTICLES SCORE Total number of steps: 0 DRESSING - LOWER BODY - SCORE: 0-UNK TOILETING: TOILETING - STEP 1: Does the patient require the assistance of a person or device, or need extra time with toileting? Yes . TOILETING - STEP 2: Does the patient require the assistance of a helper? No. TOILETING - SCORE: 6-LUCAS BLADDER MANAGEMENT: BLADDER MANAGEMENT - STEP 1: Does the patient control the bladder completely and intentionally without equipment or devices or med ications, and is always continent? Yes. BLADDER MANAGEMENT - SCORE: 7-IND BLADDER MANAGEMENT - FREQUENCY OF ACCIDENTS: BLADDER MANAGEMENT(FA) - STEP 1: How many accidents has the patient had during the current shift? 0 BOWEL MANAGEMENT: Activity did not occur on this shift BOWEL MANAGEMENT - SCORE: 7-IND BOWEL MANAGEMENT - FREQUENCY OF ACCIDENTS: BOWEL MANAGEMENT(FA) - STEP 1: How many accidents has the patient had during the current shift? 0 TRANSFERS: BED, CHAIR, WHEELCHAIR: TRANSFERS: BED, CHAIR, WHEELCHAIR - STEP 1: Does the patient require assistance of a person or device, or need extra time with bed, chair, or whe elchair transfers? No. TRANSFERS: BED, CHAIR, WHEELCHAIR - SCORE: 7-IND TRANSFERS: TOILET: TRANSFERS: TOILET - STEP 1: Does the patient require the assistance of a person or device, or need extra time with toilet transfe rs? Yes. TRANSFERS: TOILET - STEP 2: Does the patient require the assistance of a helper? No. Patient only requires an assistive device dacosta ch as a grab bar or special seat, OR s/he takes more than reasonable time to perform toilet transfers , OR there is a safety concern when s/he performs toilet transfers. TRANSFERS: TOILET - SCORE: 6-LUCAS TRANSFERS: SHOWER: Activity did not occur on this shift TRANSFERS: SHOWER - SCORE: 0-UNK TRANSFERS: TUB: Activity did not occur on this shift TRANSFERS: TUB - SCORE: 0-UNK LOCOMOTION: WALK: LOCOMOTION: WALK - STEP 1: Does the patient need help from a person or device, or need extra time to walk 150 feet? Yes. LOCOMOTION: WALK - STEP 2: How much assistance does the patient require to walk a minimum of 150 feet? Only supervision, cuing, or coaxing LOCOMOTION: WALK - SCORE: 5-SUP LOCOMOTION: WALK - COMMENTS: Pt ambulates with crutches LOCOMOTION: WHEELCHAIR: Activity did not occur on this shift LOCOMOTION: WHEELCHAIR - SCORE: 0-UNK COMPREHENSION: COMPREHENSION: TYPE: Both COMPREHENSION - STEP 1: Does the patient require help from a person or device, or need extra time to understand complex and a bstract ideas (such as current events, finances, discharge planning, medical issues, relationships, e tc)? No. COMPREHENSION - STEP 2: Does the patient need extra time, require an assistive device (such as glasses for visual comprehensi on or a hearing aid for auditory comprehension) or does s/he have mild difficulty understanding compl ex and abstract information? Yes. COMPREHENSION - SCORE: 6-LUCAS EXPRESSION EXPRESSION: TYPE: Both EXPRESSION - STEP 1: Does the patient require help from a person or device, or need extra time expressing complex and abst ract ideas (such as current events, finances, discharge planning, medical issues, relationships, etc) ? No. EXPRESSION - STEP 2: Does the patient need extra time, require an assistive device (such as augmentive communication syste m or a communication board), OR does s/he have mild difficulty expressing complex and abstract ideas (including mild dysarthria or mild word-find problems)? Yes. EXPRESSION - SCORE: 6-LUCAS SOCIAL INTERACTION: SOCIAL INTERACTION - STEP 1: Does the patient require a helper to interact with others in social and therapeutic situations? No. SOCIAL INTERACTION - STEP 2: Does the patient need extra time in social situations, OR does s/he interact with staff, other patien ts, and family members ONLY in structured environments, OR does s/he require medication for social in teraction? No. SOCIAL INTERACTION - SCORE: 7-IND PROBLEM SOLVING: PROBLEM SOLVING - STEP 1: Does the patient need help from a person or device, or need extra time to solve complex problems such as managing a checking account or confronting interpersonal problems? No. PROBLEM SOLVING - STEP 2: Does the patient require extra time to make decisions or solve problems, OR does s/he have slight dif ficulty reading, initiating, or self-correcting in unfamiliar situations? No. PROBLEM SOLVING - SCORE: 7-IND MEMORY: MEMORY - STEP 1: Does the patient need help from a person or device, or need extra time to remember frequently encount ered people, daily routines, and executing requests? No. MEMORY - STEP 2: Does the patient have slight difficulty recognizing frequently encountered people, daily routines, or executing requests without the need for repetition or using self-initiated or environmental cues to remember? No. MEMORY - SCORE: 7-IND SIGNATURE PANEL: The following modified sections: Eating - Score, Grooming - Score, Bathing - Score, Dressing - Upper Body - Score, Dressing - Lower Body - Score, Toileting - Score, Bladder Management - Score, Bowel Man agement - Score, Transfers: Bed, Chair, Wheelchair - Score, Transfers: Toilet - Score, Transfers: Patria wer - Score, Transfers: Tub - Score, Locomotion: Walk - Score, Locomotion: Walk - Comments:, Locomoti on: Wheelchair - Score, Comprehension - Score, Expression - Score, Social Interaction - Score, Proble m Solving - Score, Memory - Score were [electronically] signed by April Storey C.N.A. on MonFeb 14 2019 16:21:04 [facility]-0500 (Central Daylight Time)
[2019-02-14] MEDS: ENOXAPARIN 40 MG/0.4 ML SQ SCH (17:00)
[2019-02-14] MEDS ORDERED: NA CHLORIDE 0.9% 1,000 ML IV SCH (18:00)
--- NOTE | 2019-02-14 19:01 | FAST ---
SHIFT START DATE/TIME: 02/13/2019 19:00 (CDT) SHIFT END DATE/TIME: 02/14/2019 07:00 (CDT) NAME GERSON CLARK DATE OF : 1970 DATE OF ADMISSION: 02/08/2019 16:01 (CDT) PHONE: AGE: 48 N# [id number] GENDER: Female ENCOUNTER PHYSICIAN: Dr. Ric Wild M.D. ADMISSION DIAGNOSIS: - Orthopaedic Disorders 08 - Unilateral Hip Fracture (08.11) Left Femur Fracture. EATING: Activity did not occur on this shift EATING - SCORE: 0-UNK GROOMING: Activity did not occur on this shift GROOMING - SCORE: 0-UNK BATHING: Activity did not occur on this shift BATHING - SCORE: 0-UNK DRESSING - UPPER BODY: Patient is not dressing in public clothing ARTICLES SCORE Total number of steps: 0 DRESSING - UPPER BODY - SCORE: 0-UNK DRESSING - LOWER BODY: Patient is not dressing in public clothing ARTICLES SCORE Total number of steps: 0 DRESSING - LOWER BODY - SCORE: 0-UNK TOILETING: TOILETING - STEP 1: Does the patient require the assistance of a person or device, or need extra time with toileting? Yes . TOILETING - STEP 2: Does the patient require the assistance of a helper? Yes. TOILETING - STEP 3: How much assistance does the patient require from the helper? Hands-on assistance from the helper TOILETING - STEP 4: Of the 3 tasks: 1) Adjusting clothing prior to use, 2) Cleansing of perineal area, 3) Adjusting clot kayla after use; How many tasks does the patient perform WITHOUT assistance of the helper? Three tasks with steadying assistance from the helper TOILETING - SCORE: 4-MIN BLADDER MANAGEMENT: BLADDER MANAGEMENT - STEP 1: Does the patient control the bladder completely and intentionally without equipment or devices or med ications, and is always continent? Yes. BLADDER MANAGEMENT - SCORE: 7-IND BOWEL MANAGEMENT: Activity did not occur on this shift BOWEL MANAGEMENT - SCORE: 7-IND TRANSFERS: BED, CHAIR, WHEELCHAIR: TRANSFERS: BED, CHAIR, WHEELCHAIR - STEP 1: Does the patient require assistance of a person or device, or need extra time with bed, chair, or whe elchair transfers? Yes. TRANSFERS: BED, CHAIR, WHEELCHAIR - STEP 2: Does the patient require the assistance of a helper? Yes. TRANSFERS: BED, CHAIR, WHEELCHAIR - STEP 3: How much assistance does the patient require from the helper? Steadying/guiding assistance TRANSFERS: BED, CHAIR, WHEELCHAIR - SCORE: 4-MIN TRANSFERS: TOILET: TRANSFERS: TOILET - STEP 1: Does the patient require the assistance of a person or device, or need extra time with toilet transfe rs? Yes. TRANSFERS: TOILET - STEP 2: Does the patient require the assistance of a helper? Yes. TRANSFERS: TOILET - STEP 3: How much assistance does the patient require from the helper? Only supervision, cuing, coaxing, OR he lp to set out transfer equipment or to lock brakes and/or lift foot rests TRANSFERS: TOILET - SCORE: 5-SUP TRANSFERS: SHOWER: Activity did not occur on this shift TRANSFERS: SHOWER - SCORE: 0-UNK TRANSFERS: TUB: Activity did not occur on this shift TRANSFERS: TUB - SCORE: 0-UNK LOCOMOTION: WALK: Activity did not occur on this shift LOCOMOTION: WALK - SCORE: 0-UNK LOCOMOTION: WHEELCHAIR: Activity did not occur on this shift LOCOMOTION: WHEELCHAIR - SCORE: 0-UNK COMPREHENSION: COMPREHENSION: TYPE: Both COMPREHENSION - STEP 1: Does the patient require help from a person or device, or need extra time to understand complex and a bstract ideas (such as current events, finances, discharge planning, medical issues, relationships, e tc)? No. COMPREHENSION - STEP 2: Does the patient need extra time, require an assistive device (such as glasses for visual comprehensi on or a hearing aid for auditory comprehension) or does s/he have mild difficulty understanding compl ex and abstract information? Yes. COMPREHENSION - SCORE: 6-LUCAS EXPRESSION EXPRESSION: TYPE: Both EXPRESSION - STEP 1: Does the patient require help from a person or device, or need extra time expressing complex and abst ract ideas (such as current events, finances, discharge planning, medical issues, relationships, etc) ? No. EXPRESSION - STEP 2: Does the patient need extra time, require an assistive device (such as augmentive communication syste m or a communication board), OR does s/he have mild difficulty expressing complex and abstract ideas (including mild dysarthria or mild word-find problems)? No. EXPRESSION - SCORE: 7-IND SOCIAL INTERACTION: SOCIAL INTERACTION - STEP 1: Does the patient require a helper to interact with others in social and therapeutic situations? No. SOCIAL INTERACTION - STEP 2: Does the patient need extra time in social situations, OR does s/he interact with staff, other patien ts, and family members ONLY in structured environments, OR does s/he require medication for social in teraction? Yes, patient needs extra time SOCIAL INTERACTION - SCORE: 6-LUCAS PROBLEM SOLVING: PROBLEM SOLVING - STEP 1: Does the patient need help from a person or device, or need extra time to solve complex problems such as managing a checking account or confronting interpersonal problems? No. PROBLEM SOLVING - STEP 2: Does the patient require extra time to make decisions or solve problems, OR does s/he have slight dif ficulty reading, initiating, or self-correcting in unfamiliar situations? Yes, patient needs extra ti me. PROBLEM SOLVING - SCORE: 6-LUCAS MEMORY: MEMORY - STEP 1: Does the patient need help from a person or device, or need extra time to remember frequently encount ered people, daily routines, and executing requests? No. MEMORY - STEP 2: Does the patient have slight difficulty recognizing frequently encountered people, daily routines, or executing requests without the need for repetition or using self-initiated or environmental cues to remember? No. MEMORY - SCORE: 7-IND SIGNATURE PANEL: The following modified sections: Eating - Score, Grooming - Score, Dressing - Upper Body - Score, Emigdio ssing - Lower Body - Score, Toileting - Score, Bladder Management - Score, Bowel Management - Score, Transfers: Bed, Chair, Wheelchair - Score, Transfers: Toilet - Score, Transfers: Shower - Score, [place] sfers: Tub - Score, Locomotion: Walk - Score, Locomotion: Wheelchair - Score, Comprehension - Score, Expression - Score, Social Interaction - Score, Problem Solving - Score, Memory - Score were [electro nically] signed by Nat Aaron CNA on MonFeb 14 2019 19:00:27 GMT-0500 (Central Daylight Time)
[2019-02-14 21:00] VITALS: BP 114/60; TEMP 98.1
--- NOTE | 2019-02-14 22:29 | PN ---
Subjective: Ms. Chen today fell while having lunch. She was actually at a modified independent level using crutches to ambulate when she was in the dining area and tried to reach back to the chair to sit and ended up falling on her left side. She developed more pain on the left side. This is th e site where she had a left displaced femoral neck fracture, which was treated by Dr. Bartlett with closed reduction and screw fixation. She does have advanced osteoporosis with high risk of fractures . After a fall in the lunch area, she had a left hip x-ray done stat, which showed a new spiral frac ture in the subtrochanteric region or in the proximal shaft of the left femur. This was evaluated by Dr. Bartlett, the orthopedic surgeon, who initially did surgery and he determined that the nature o f her new fracture along with the screw placement that he had used for surgical fixation would requir e more extensive surgical repair, which may include removing the femur neck and head along with placi ng a long stem prosthesis and external cables for stabilization. As a result, the possible transfer was initiated for higher level of care to [facility] where the patient would prefer to be see n. The Orthopedic Service there should be in contact with Dr. Bartlett for more information to faci litate the transfer. The Medical Service there will also be managing the patient. In terms of medical history, she does have a history of osteoporosis as indicated and otherwise has h ad multiple surgeries in the past. Prior surgeries include gallbladder surgery, total hysterectomy, laparoscopic surgery, , and right leg surgery. With respect to her physical and occupational therapy, she made excellent progress up to her recent f all, where she was modified independence, using crutches to ambulate at least 250 feet without signif icant difficulty. Her activities of daily living were also performed at the level of modified indepe ndence and her pain was managed to the point that she had around 3/10. Since her fall, the pain leve l has gotten up to 10/10 and she is currently receiving Dilaudid 1 mg every 2 hours as needed along w ith Zofran 4 mg every 4 hours as needed. She does have a 5% lidocaine patch applied to the hip as we ll. Objective: Vital Signs: Blood pressure 107/71, pulse 66, respiratory rate 16, temperature 97.4, oxy gen saturation 98%. General: Ms. Chen currently at 4:30 this afternoon, has a pain level of 0, at around 2 p.m., it was 10/10. She is otherwise resting comfortably in bed and in no acute distress. HEENT: She is normocephalic, atraumatic. Extremities: Has no evidence of any injury other than the hip. No pain in the right upper and lower extremity or the left upper extremity. Lungs: She is clear to auscultation. Heart: Regular. Abdomen: Soft. Laboratory Studies: White blood cell count 6.5, hemoglobin 11.8, hematocrit 34.7, platelets 309. Ch emistries; sodium 142, potassium 4.3, chloride 107, carbon dioxide 30, BUN 10, creatinine 0.61, gluco se 99, calcium 8.6, magnesium 2.6. Prealbumin 15.4, albumin 3.4. Urinalysis from the showed 2+ esterase, 20-50 wbc's and 5-10 squamous epithelial cells. Cultures from the 25th did grow E. coli b etween 10,000 and 100,000 of colony-forming units. She has been asymptomatic and it is poe sensitive except for resistance to tetracyclines and indeterminate to Unasyn and aztreonam as well as piperaci llin and tazobactam. Assessment: Ms. Chen is a 48-year-old patient with an acute on subacute left femur fracture afte r a 2nd fall. She has osteoporosis that is moderate to severe in nature. She does require acute ort hopedic surgical intervention that is not available at our hospital. Discussion with Dr. Bartlett, the surgeon to review, perform her initial surgery indicates that she requires a higher level of care , which will include potential hip replacement on the left with long stem prosthesis and cables. Ini tiation for transfer was initiated with [facility] and they will be contacting Dr. Bartlett. Plan: 1.Transfer for higher level of care. 2.Continue with medications, which will include Dilaudid 1 mg every 4 hours as needed, Zofran 4 mg e very 4 hours as needed. 3.Continue with Lovenox 40 mg subcutaneously daily for DVT prophylaxis. 4.Baclofen 10 mg at night for muscle spasms. 5.Lidoderm patch 5% apply to left hip daily. 6.Magnesium oxide 400 mg twice daily. 7.Senokot-S 2 at bedtime. 8.Ultram 100 mg every 6 hours as needed. 9.The patient will be discharged from the acute inpatient rehabilitation unit. ERIN Voice ID: [id number] Report ID: [id number]
[2019-02-15] MEDS ORDERED: LIDOCAINE 5% PATCH TOP SCH (08:00)
--- NOTE | 2019-02-15 14:23 | FAST ---
ENCOUNTER DATE AND TIME: 02/13/2019 08:00 (CDT) NAME GERSON CLARK DATE OF : 1970 DATE OF ADMISSION: 02/08/2019 16:01 (CDT) PHONE: AGE: 48 SSN# [id number] GENDER: Female ENCOUNTER PHYSICIAN: Dr. Ric Wild M.D. ADMISSION DIAGNOSIS: - Orthopaedic Disorders 08 - Unilateral Hip Fracture (08.11) Left Femur Fracture. EATING: Activity did not occur on this shift EATING - SCORE: 0-UNK GROOMING: Activity did not occur on this shift GROOMING - SCORE: 0-UNK BATHING: Activity did not occur on this shift BATHING - SCORE: 0-UNK DRESSING - UPPER BODY: Activity did not occur on this shift Patient is not dressing in public clothing ARTICLES SCORE Total number of steps: 0 DRESSING - UPPER BODY - SCORE: 0-UNK DRESSING - LOWER BODY: Activity did not occur on this shift Patient is not dressing in public clothing ARTICLES SCORE Total number of steps: 0 DRESSING - LOWER BODY - SCORE: 0-UNK TOILETING: Activity did not occur on this shift TOILETING - SCORE: 0-UNK BLADDER MANAGEMENT: Activity did not occur on this shift BLADDER MANAGEMENT - SCORE: 7-IND BOWEL MANAGEMENT: Activity did not occur on this shift BOWEL MANAGEMENT - SCORE: 7-IND TRANSFERS: BED, CHAIR, WHEELCHAIR: TRANSFERS: BED, CHAIR, WHEELCHAIR - STEP 1: Does the patient require assistance of a person or device, or need extra time with bed, chair, or whe elchair transfers? Yes. TRANSFERS: BED, CHAIR, WHEELCHAIR - STEP 2: Does the patient require the assistance of a helper? No. Patient only requires an assistive device fo r bed, chair, wheelchair transfers such as a sliding board, grab bar, or brace, OR s/he takes more th an reasonable time, OR there is a safety concern when s/he performs the transfers TRANSFERS: BED, CHAIR, WHEELCHAIR - SCORE: 6-LUCAS TRANSFERS: TOILET: Activity did not occur on this shift TRANSFERS: TOILET - SCORE: 0-UNK TRANSFERS: SHOWER: Activity did not occur on this shift TRANSFERS: SHOWER - SCORE: 0-UNK TRANSFERS: TUB: Activity did not occur on this shift TRANSFERS: TUB - SCORE: 0-UNK LOCOMOTION: WALK: LOCOMOTION: WALK - STEP 1: Does the patient need help from a person or device, or need extra time to walk 150 feet? No. LOCOMOTION: WALK - STEP 2: Does the patient need an assistive device (such as an orthosis, prosthesis, crutches, or walker) to g o 150 feet, OR does s/he take more than reasonable time, OR is there a concern for safety? Yes, the p atient needs an assistive device LOCOMOTION: WALK - SCORE: 6-LUCAS LOCOMOTION: WHEELCHAIR: LOCOMOTION: WHEELCHAIR - STEP 1: Does the patient need help to go 150 feet in a wheelchair? No. LOCOMOTION: WHEELCHAIR - SCORE: 6-LUCAS LOCOMOTION: STAIRS: Activity did not occur on this shift LOCOMOTION: STAIRS - SCORE: 0-UNK COMPREHENSION: COMPREHENSION - SCORE: 0-UNK EXPRESSION EXPRESSION - SCORE: 0-UNK SOCIAL INTERACTION: SOCIAL INTERACTION - SCORE: 0-UNK PROBLEM SOLVING: PROBLEM SOLVING - SCORE: 0-UNK MEMORY: MEMORY - SCORE: 0-UNK SIGNATURE PANEL: The following modified sections: Transfers: Bed, Chair, Wheelchair - Score, Transfers: Toilet - Score , Locomotion: Walk - Score, Locomotion: Wheelchair - Score, Locomotion: Stairs - Score were [electron ically] signed by Rancho Kaiser PTA on MonFeb 15 2019 14:22:08 GMT-0500 (Central Daylight Time)
== END 2019-02-14 20:55 | disposition short-term general hospital (02) | DRG 561 ==
LOC: 5TH 16:01
PROVIDERS: ADMIT Psychiatry & Neurology Neurology with Special Qualifications in Child Neurology; ATTEND Psychiatry & Neurology Neurology with Special Qualifications in Child Neurology
DX: S72.002D Fracture of unspecified part of neck of left femur, subsequent encounter for closed fracture with routine healing (principal); M81.0 Age-related osteoporosis without current pathological fracture
CPT/HCPCS: 36415; 70450; 80048; 81001; 82040; 83735; 84134; 85025; 87077; 87086; 87088; 87186; 97110; 97116; 97161; 97530; J1170; J1650; J2405; J7030